=== PATIENT | female | born 1955 | race Caucasian/White ===

== ENCOUNTER 2019-03-31 07:19 | Inpatient (IN) | payer MEDICARE, OTHER ==
[2019-03-31] MEDS ORDERED: NORMAL SALINE 1000 ML 1,000 ML IV ONE ×3 (07:30→10:21)
--- NOTE | 2019-03-31 07:44 | EKG REPORT ---
SEVERITY:- ABNORMAL ECG - SINUS RHYTHM PROLONGED QT INTERVAL : Confirmed by: Ham Cordova MD 31-Mar-2019 07:43:01
[2019-03-31] MEDS ORDERED: ONDANSETRON HCL INJ/PF 4 MG/2 ML SDV IV ONE ×2 (07:47→10:01)
[2019-03-31 07:51] LABS: HEMATOCRIT 38.5 % (36.0-47.0); HEMOGLOBIN 12.9 g/dL (12.0-15.5); MEAN CORPUSCULAR HEMOGLOBIN 28.8 pg (27.0-33.4); MEAN CORPUSCULAR HGB CONC 33.4 g/dL (32.0-36.0); MEAN CORPUSCULAR VOLUME 86 fl (80-97); PLATELET COUNT 337 10^3/uL (150-450); RED BLOOD COUNT 4.48 10^6/uL (3.72-5.28); RED CELL DISTRIBUTION WIDTH 15.8 % (11.5-14.0)
[2019-03-31] MEDS ORDERED: METOCLOPRAMIDE HCL INJ/PF 10 MG/2 ML SDV IV ONE ×2 (07:56→10:21)
[2019-03-31 08:10] LABS: ALBUMIN 4.6 g/dL (3.5-5.0); ALKALINE PHOSPHATASE 110 U/L (38-126); ASPARTATE AMINO TRANSFERASE 374 U/L (14-36); BILIRUBIN,DIRECT 0.3 mg/dL (0.0-0.4); BILIRUBIN,TOTAL 0.7 mg/dL (0.2-1.3); BLOOD UREA NITROGEN 36 mg/dL (7-20); CALCIUM 10.8 mg/dL (8.4-10.2); CARBON DIOXIDE 11 mmol/L (22-30); CHLORIDE 95 mmol/L (98-107); POTASSIUM 4.4 mmol/L (3.6-5.0); TOTAL PROTEIN 7.7 g/dL (6.3-8.2)
[2019-03-31 08:12] LABS: ABSOLUTE MONOCYTES # (MANUAL) 0.9 10^3/uL (0.1-1.4); BASOPHILS % (MANUAL) 0 % (0-2); EOSINOPHILS % (MANUAL) 0 % (0-6); LYMPHOCYTES % (MANUAL) 9 % (13-45); MONOCYTES % (MANUAL) 4 % (3-13); SEGMENTED NEUTROPHILS % (MAN) 87 % (42-78); TOTAL CELLS COUNTED 100
[2019-03-31 08:14] LABS: ANISOCYTOSIS SLIGHT; OVALOCYTES SLIGHT; PLATELET CLUMPS PRESENT; PLATELET COMMENT ADEQUATE; POIKILOCYTOSIS SLIGHT
[2019-03-31 08:17] LABS: ANION GAP 30 (5-19)
[2019-03-31 08:18] LABS: GLUCOSE 572 mg/dL (75-110)
[2019-03-31] MEDS ORDERED: NORMAL SALINE 100 ML with INSULIN REGULAR, HUMAN 100 UNIT IV PRN ×4 (08:26→12:15)
--- NOTE | 2019-03-31 08:54 | RADIOLOGY REPORT (SQ) ---
EXAM DESCRIPTION: CT ABD/PELVIS NO ORAL OR IV COMPLETED DATE/TIME: 03/31/2019 8:21 am REASON FOR STUDY: abd pain COMPARISON: None. TECHNIQUE: CT scan of the abdomen and pelvis performed without intravenous or oral contrast. Images reviewed with lung, soft tissue, and bone windows. Reconstructed coronal and sagittal MPR images revi ewed. All images stored on PACS. All CT scanners at this facility use dose modulation, iterative reconstruction, and/or weight based d osing when appropriate to reduce radiation dose to as low as reasonably achievable (ALARA). [facility]: Dose Right [facility]: CareDose [facility]: Dose Right [facility]: Teradose 4D [facility]: Smart [facility] RADIATION DOSE: CT Rad equipment meets quality standard of care and radiation dose reduction techniq ues were employed. CTDIvol: 7.0 mGy. DLP: 361 mGy-cm. LIMITATIONS: None. FINDINGS: LOWER CHEST: No basilar consolidation or pleural effusion. Moderate hiatal hernia and ath erosclerotic calcification of the coronary arteries. No cardiomegaly or pericardial effusion. NON-CONTRASTED LIVER, SPLEEN, ADRENALS: Evaluation is limited due to the absence of intravenous contr ast. The diffuse low attenuation of hepatic parenchyma is consistent with hepatic steatosis. The sp yen is normal in size. There is no adrenal mass. PANCREAS: No gross acute abnormality. GALLBLADDER: The gallbladder is contracted. There is no pericholecystic fluid. RIGHT KIDNEY AND URETER: Evaluation is limited due to the absence of intravenous contrast. There is no hydronephrosis, nephrolithiasis, hydroureter or ureterolithiasis. LEFT KIDNEY AND URETER: Evaluation is limited due to the absence of intravenous contrast. There is n o hydronephrosis, nephrolithiasis, hydroureter or ureterolithiasis. AORTA AND RETROPERITONEUM: No aneurysm or dissection. Diffuse atherosclerotic calcification of the a bdominal vasculature is suggestive of diabetes mellitus. There is no retroperitoneal adenopathy, mas s or hemorrhage. BOWEL AND PERITONEAL CAVITY: No bowel obstruction, bowel wall thickening, pericolonic/perienteric inf lammation. No mesenteric adenopathy, free intraperitoneal fluid, or mesenteric/ omental stranding. APPENDIX: Normal. PELVIS, BLADDER, AND ABDOMINAL WALL:The uterine bladder is distended and normal in appearance. There is no abnormality of the uterus and adnexa that is apparent on CT. BONES: Age-indeterminate wedge compression deformity of the superior endplate of the T11 vertebral asya dy without retropulsion and with less than 25% loss of the vertebral body height ; and chronic fractu res of the right anterior pubic ramus and sacrum. OTHER: No other finding. IMPRESSION: 1. No acute intra-abdominal abnormality. 2. Moderate hiatal hernia. 3. Hepatic steatosis. 4. Age-indeterminate wedge compression deformity of the superior endplate of the T11 vertebral body w ithout retropulsion and with less than 25% loss of the vertebral body height - if the patient is symp tomatic correlation with bone scan or MRI could be obtained to evaluate the acuity of the fracture. 5. Extensive vascular calcifications suggestive of diabetes mellitus. COMMENT: Quality ID # [id number]: Final reports with documentation of one or more dose reduction techniques (e.g., Automated exposure control, adjustment of the mA and/or kV according to patient size, use of iterative reconstruction technique) TECHNICAL DOCUMENTATION: JOB ID: [id number] [employer]- All Rights Reserved Reading location - IP/workstation name: [email or web address]
[2019-03-31 08:55] LABS: APPEARANCE,URINE CLEAR; BILIRUBIN,URINE NEGATIVE (NEGATIVE); COLOR,URINE YELLOW; GLUCOSE, URINE >=500 mg/dL (NEGATIVE); KETONES,URINE 80 mg/dL (NEGATIVE); PROTEIN,URINE 30 mg/dL (NEGATIVE); URINE SPECIFIC GRAVITY 1.023; UROBILINOGEN,URINE NEGATIVE mg/dL (<2.0)
[2019-03-31] MEDS ORDERED: INSULIN REG, HUMAN 100 UNIT/ML 3 ML VIAL (PYX) ONE (08:58)
--- NOTE | 2019-03-31 10:10 | ER Document Report ---
ED General - General Chief Complaint: High Blood Sugar Stated Complaint: BLOOD SUGAR ISSUES Time Seen by Provider: 03/31/19 07:33 Mode of Arrival: Ambulatory Information source: Patient - HPI Notes: Patient complains of severe nausea vomiting and abdominal cramping. This is been going on for approximately 12 hours. She states she has been out of her normal insulin pods. She states her blood sugar has been elevated but is unsure exactly how high. She states she has had problems with diabetic ketoacidosis in the past. Patient has had no diarrhea. No recent fevers or infections. No changes of exercise habits. She has had a decreased p.o. intake. The abdominal pain is been severe and cramping. It is constant. Nothing makes it better or worse. It does radiate throughout her abdomen. - Related Data Allergies/Adverse Reactions: No Known Allergies Allergy (Unverified 03/31/19 08:00) Past Medical History - General Information source: Patient - Social History Smoking Status: Never Smoker Frequency of alcohol use: None Drug Abuse: None Family History: Reviewed & Not Pertinent Patient has suicidal ideation: No Patient has homicidal ideation: No Past Surgical History: Reports: Hx Cardiac Surgery - 4 stents Review of Systems - Review of Systems Constitutional: Malaise, Weakness Cardiovascular: denies: Chest pain, Palpitations Respiratory: denies: Cough, Short of breath Gastrointestinal: Abdominal pain, Nausea, Vomiting -: Yes All other systems reviewed and negative Physical Exam - Vital signs Vitals: Temp Resp Pulse Ox 97.7 F 19 97 03/31/19 07:27 03/31/19 07:27 03/31/19 07:27 Interpretation: Tachycardic - General General appearance: Appears well, Alert - HEENT Head: Normocephalic, Atraumatic Eyes: Normal Pupils: PERRL - Respiratory Respiratory status: No respiratory distress Chest status: Nontender Breath sounds: Normal Chest palpation: Normal - Cardiovascular Rhythm: Regular Heart sounds: Normal auscultation Murmur: No - Abdominal Inspection: Normal Distension: No distension Bowel sounds: Normal Tenderness: Tender - Mild diffuse Organomegaly: No organomegaly - Back Back: Normal, Nontender - Extremities General upper extremity: Normal inspection, Nontender, Normal color, Normal ROM, Normal temperature General lower extremity: Normal inspection, Nontender, Normal color, Normal ROM, Normal temperature, Normal weight bearing. No: David's sign - Neurological Neuro grossly intact: Yes Cognition: Normal Orientation: AAOx4 [place] Coma Scale Eye Opening: Spontaneous Zach Coma Scale Verbal: Oriented [place] Coma Scale Motor: Obeys Commands Zach Coma Scale Total: 15 Speech: Normal Motor strength normal: LUE, RUE, LLE, RLE Sensory: Normal - Psychological Associated symptoms: Normal affect, Normal mood - Skin Skin Temperature: Warm Skin Moisture: Dry Skin Color: Normal Course - Re-evaluation Re-evalutation: 03/31/19 10:07 Patient arrives with multiple episodes of vomiting. Patient's blood sugar came back over 500. She had a bicarbonate of 11. Patient is in obvious diabetic ketoacidosis. Symptomatic medications as well as IV fluids and antinausea medicines were given. Patient has had significant relief of symptoms at this time. She has been maintained on fluids and an insulin drip. Patient had a CT the abdomen that was unremarkable. She has been evaluated by the control panel operator here in the emergency department. She will be placed in the IMCU. - Vital Signs Vital signs: Temp Pulse Resp BP Pulse Ox 97.7 F 19 167/76 H 97 03/31/19 07:27 03/31/19 07:27 03/31/19 07:39 03/31/19 07:27 - Laboratory Result Diagrams: 03/31/19 07:30 03/31/19 07:30 Laboratory results interpreted by me: 03/31/19 03/31/19 03/31/19 07:29 07:30 07:30 WBC 22.0 H RDW 15.8 H Seg Neuts % (Manual) 87 H Lymphocytes % (Manual) 9 L Abs Neuts (Manual) 19.1 H Sodium 136.3 L Chloride 95 L Carbon Dioxide 11 L Anion Gap 30 H BUN 36 H Est GFR ( Amer) 57 L Est GFR (MDRD) Non-Af 47 L Glucose 572 H* POC Glucose 429 H* Calcium 10.8 H AST 374 H Lipase Urine Protein Urine Glucose (UA) Urine Ketones Urine Blood 03/31/19 03/31/19 03/31/19 07:30 08:42 09:02 WBC RDW Seg Neuts % (Manual) Lymphocytes % (Manual) Abs Neuts (Manual) Sodium Chloride Carbon Dioxide Anion Gap BUN Est GFR ( Amer) Est GFR (MDRD) Non-Af Glucose POC Glucose 482 H* Calcium AST Lipase 448.7 H Urine Protein 30 H Urine Glucose (UA) >=500 H Urine Ketones 80 H Urine Blood SMALL H - Diagnostic Test Radiology reviewed: Image reviewed, Reports reviewed - EKG Interpretation by Me EKG shows normal: Sinus rhythm Rate: Normal - 93 Rhythm: NSR [place]/QRS: No: Right axis deviation, Left axis deviation Critical Care Note - Critical Care Note Total time excluding time spent on procedures (mins): 50 Comments: Approximately 50 minutes of critical care time were spent on this patient. This included multiple reexaminations of the patient. This included managing the patient's fluid status and insulin drip. This included speaking with operations consultant. This included reviewing imaging and laboratory values. Discharge - Discharge Clinical Impression: Diabetic ketoacidosis Qualifiers: Diabetes mellitus type: type 1 Diabetes mellitus complication detail: without coma Qualified Code(s): E10.10 - Type 1 diabetes mellitus with ketoacidosis without coma Condition: Serious Disposition: ADMITTED INPATIENT Admitting Provider: Joshua (Hospitalist) Unit Admitted: [facility]
[2019-03-31 11:32] LABS: VENOUS BLOOD BASE EXCESS -15.8 mmol/L; VENOUS BLOOD HCO3 11.2 mmol/L (20-32); VENOUS BLOOD PCO2 30.7 mmHg (35-63)
[2019-03-31 11:35] LABS: VENOUS BLOOD PH 7.18 (7.30-7.42)
[2019-03-31] MEDS ORDERED: DEXTROSE 40% GEL 15 GM TUBE PO PRN ×2 (11:45)
[2019-03-31] MEDS ORDERED: DEXTROSE 50%-WATER 25 GM/50 ML DISP.SYRIN IV PRN ×2 (11:45)
[2019-03-31] MEDS ORDERED: GLUCAGON,HUMAN RECOMB 1 MG INJ IM PRN (11:45)
[2019-03-31] MEDS ORDERED: ACETAMINOPHEN 325 MG TABLET PO PRN (12:03)
[2019-03-31] MEDS ORDERED: PROMETHAZINE HCL INJ 25 MG/1 ML VIAL IV ONE (12:15)
--- NOTE | 2019-03-31 12:21 | PDOC H&P ---
History of Present Illness Admission Date/PCP: 03/31/19 11:03 Patient complains of: Nausea, vomiting and elevated glucose History of Present Illness: GORDON WALTON is a 63 year old female type I diabetic on an insulin pump. She states that over the last several days she has been feeling more poorly. She believes it started on Friday. She also was running out of her glucose testing equipment. Her symptoms included nausea and vomiting. She had no omer rrhea. She does not think she had a fever. She does state that she had a cough and at first thought it might of been the flu. Over the last several days she has had progressively decreasing appetite to the point where now she has recurrent nausea and vomiting. Her last episode of DKA was over 10 years ago. Her white blood cell count was elevated at 22,000. She had a decreased pH and decreased bicarb on her venous blood gas. Her glucose was elevated to 572 and she had an anion gap. In addition, she had an elevated lipase. She was started on insulin infusion as well as aggressive IV fluids. She was seen by the freelance court reporter who felt there was no need for an ICU admission. She was referred to the hospital service for admission. Past Medical History Cardiac Medical History: Reports: Coronary Artery Disease Pulmonary Medical History: Reports: None EENT Medical History: Reports: Other - Diabetic retinopathy Neurological Medical History: Reports: Other - Diabetic neuropathy Denies: Hemorrhagic CVA, Ischemic CVA Endocrine Medical History: Reports: Diabetes Mellitus Type 1 Renal/ Medical History: Denies: Chronic Kidney Disease Malignancy Medical History: Reports: None GI Medical History: Denies: Cirrhosis, Crohn's Disease, Gastroesophageal Reflux Disease, U lcerative Colitis Musculoskeltal Medical History: Reports: Other - Bilateral Charcot feet Denies: Arthritis, Fibromyalgia, Gout Psychiatric Medical History: Reports: Depression Denies: Alcohol Dependency, Dementia, Substance Abuse, Tobacco Dependency Traumatic Medical History: Reports: None Hematology: Denies: Anemia, Bleeding Tendencies Infectious Medical History: Reports: None Past Surgical History Past Surgical History: Reports: Coronary Stent, Orthopedic Surgery - Right foot reconstruction for Charcot foot Social History Information Source: Patient Lives with: Family Smoking Status: Never Smoker Electronic Cigarette use?: No Frequency of Alcohol Use: None - History of heavy alcohol use 20 years ago Hx Recreational Drug Use: No Hx Prescription Drug Abuse: No - Advance Directive Resuscitation Status: Do Not Resuscitate Surrogate healthcare decision maker:: The patient does have a living will and DNR back home in [place] Family History Family History: Reviewed & Not Pertinent Parental Family History Reviewed: Yes Children Family History Reviewed: Yes Sibling(s) Family History Reviewed.: Yes Medication/Allergy Home Medications: Aspirin [Aspirin 325 mg Tablet] 325 mg PO DAILY 03/31/19 Bupropion HCl [Wellbutrin Xl 150 mg 24hr Tablet] 150 mg PO Q12 03/31/19 Carvedilol [Coreg] 6.25 mg PO Q12 03/31/19 Gabapentin [Neurontin 300 mg Capsule] 300 mg PO Q12 03/31/19 Insulin Pump Cartridge [Omnipod] 1 each SQ .ASDIR 03/31/19 Levothyroxine Sodium [Synthroid 50 Mcg Tablet] 50 mcg PO Q6AM 03/31/19 Lisinopril [Prinivil 5 mg Tablet] 5 mg PO DAILY 03/31/19 Omeprazole Magnesium [Prilosec Otc] 40 mg PO Q6AM 03/31/19 Oxycodone HCl [Oxy-Ir 5 mg Tablet] 5 mg PO BIDP PRN 03/31/19 Rosuvastatin Calcium [Crestor] 40 mg PO DAILY 03/31/19 Sertraline HCl [Zoloft] 200 mg PO DAILY 03/31/19 Allergies/Adverse Reactions: No Known Allergies Allergy (Unverified 03/31/19 08:00) Review of Systems Constitutional: PRESENT: anorexia. ABSENT: chills, headache(s), weight gain, weight loss Eyes: PRESENT: visual disturbances - Diabetic retinopathy Ears: ABSENT: hearing changes Nose, Mouth, and Throat: ABSENT: mouth pain, sore throat Cardiovascular: ABSENT: chest pain, dyspnea on exertion, edema, orthropnea, palpitations Respiratory: ABSENT: dyspnea, hemoptysis, sputum Gastrointestinal: PRESENT: nausea, vomiting. ABSENT: constipation, diarrhea Genitourinary: ABSENT: difficulty urinating, dysuria, hematuria Musculoskeletal: PRESENT: deformity - Charcot feet. ABSENT: back pain, joint swelling Integumentary: ABSENT: erythema, pruritus, rash, wounds Neurological: ABSENT: abnormal speech, confusion, memory loss, syncope Psychiatric: ABSENT: anxiety, depression, hallucinations Endocrine: ABSENT: cold intolerance, heat intolerance, polydipsia, polyuria Hematologic/Lymphatic: ABSENT: easy bleeding, easy bruising, lymphadenopathy Allergic/Immunologic: ABSENT: seasonal rhinorrhea Physical Exam Vital Signs: Temp Pulse Resp BP Pulse Ox 97.7 F 23 H 141/55 H 95 03/31/19 07:27 03/31/19 12:01 03/31/19 12:01 03/31/19 12:01 Intake & Output 03/30/19 03/31/19 04/01/19 06:59 06:59 06:59 Intake Total 3018 Balance 3018 Weight 73.936 kg General appearance: PRESENT: cooperative, mild distress - Mild to moderate distress, well-developed, well-nourished Head exam: PRESENT: atraumatic, normocephalic Eye exam: PRESENT: conjunctiva pink, EOMI. ABSENT: scleral icterus Ear exam: PRESENT: normal external ear exam. ABSENT: bleeding, drainage Neck exam: PRESENT: full ROM. ABSENT: JVD, lymphadenopathy Respiratory exam: PRESENT: clear to auscultation gregor, tachypnea. ABSENT: accessory muscle use, rales, rhonchi, wheezes Cardiovascular exam: PRESENT: RRR, +S1, +S2 GI/Abdominal exam: PRESENT: normal bowel sounds, soft. ABSENT: distended, guarding, tenderness Rectal exam: PRESENT: deferred Gentrourinary exam: ABSENT: indwelling catheter Extremities exam: ABSENT: clubbing, pedal edema Musculoskeletal exam: PRESENT: deformity - Charcot feet bilaterally Neurological exam: PRESENT: alert, awake, oriented to person, oriented to place, oriented to time, oriented to situation Psychiatric exam: PRESENT: anxious, appropriate affect - Affect reflects her nausea, vomiting and acute illness Focused psych exam: ABSENT: delusional, restlessness Skin exam: PRESENT: dry, normal color, warm. ABSENT: petechiae, rash Results Laboratory Results: 03/31/19 07:30 03/31/19 03/31/19 03/31/19 07:30 07:30 07:30 WBC 22.0 H RBC 4.48 Hgb 12.9 Hct 38.5 MCV 86 MCH 28.8 MCHC 33.4 RDW 15.8 H Plt Count 337 Seg Neutrophils % Not Reportable VBG pH VBG pCO2 VBG HCO3 VBG Base Excess Sodium 136.3 L Potassium 4.4 Chloride 95 L Carbon Dioxide 11 L Anion Gap 30 H BUN 36 H Creatinine 1.15 Est GFR ( Amer) 57 L Glucose 572 H* Calcium 10.8 H Total Bilirubin 0.7 AST 374 H Alkaline Phosphatase 110 Total Protein 7.7 Albumin 4.6 Lipase 448.7 H Urine Color Urine Appearance Urine pH Ur Specific [place] Urine Protein Urine Glucose (UA) Urine Ketones Urine Blood Urine RBC (Auto) 03/31/19 03/31/19 08:42 11:12 WBC RBC Hgb Hct MCV MCH MCHC RDW Plt Count Seg Neutrophils % VBG pH 7.18 L* VBG pCO2 30.7 L VBG HCO3 11.2 L VBG Base Excess -15.8 Sodium Potassium Chloride Carbon Dioxide Anion Gap BUN Creatinine Est GFR ( Amer) Glucose Calcium Total Bilirubin AST Alkaline Phosphatase Total Protein Albumin Lipase Urine Color YELLOW Urine Appearance CLEAR Urine pH 5.0 Ur Specific [place] 1.023 Urine Protein 30 H Urine Glucose (UA) >=500 H Urine Ketones 80 H Urine Blood SMALL H Urine RBC (Auto) 0 03/31/19 07:30 Troponin I 0.071 Impressions: Abdomen/Pelvis CT 03/31/19 07:56 IMPRESSION: 1. No acute intra-abdominal abnormality. 2. Moderate hiatal hernia. 3. Hepatic steatosis. 4. Age-indeterminate wedge compression deformity of the superior endplate of the T11 vertebral body without retropulsion and with less than 25% loss of the vertebral body height - if the patient is symptomatic correlation with bone scan or MRI could be obtained to evaluate the acuity of the fracture. 5. Extensive vascular calcifications suggestive of diabetes mellitus. Assessment and Plan - Diagnosis (1) Diabetic ketoacidosis Qualifiers: Diabetes mellitus type: type 1 Diabetes mellitus complication detail: without coma Qualified Code(s): E10.10 - Type 1 diabetes mellitus with ketoacidosis without coma Is this a current diagnosis for this admission?: Yes Plan: 03/31/2019-the patient is on insulin pump. Unfortunately she ran out of supplies for glucose testing. She was unable to adjust her pump based on glucose readings. She began to feel sick on Friday. She is visiting from [place] and because she thought it might of been the flu, did not seek me dical attention. As she worsened and she began to have nausea and vomiting. She presented to the hospital and it was found that her glucose was greater than 500, pH was down, she had an elevated anion gap and abnormal transaminases. She was promptly started on an insulin infusion and given copious amounts of intravenous fluid with aggressive Accu-Cheks and laboratory testing. We will continue to adjust her insulin infusion. When her glucose hits approximately 200 we will change the fluid to dextrose containing normal saline. Based on her basal rate I will use long-acting insulin with short acting sliding scale coverage. I am going to keep her n.p.o. because of her pancreatitis. Hopefully that will resolve and she could begin consuming an oral diet tomorrow. (2) Diabetic neuropathy Qualifiers: Diabetes mellitus type: type 1 Diabetes mellitus complication detail: diabetic polyneuropathy Qualified Code(s): E10.42 - Type 1 diabetes mellitus with diabetic polyneuropathy Is this a current diagnosis for this admission?: Yes Plan: 03/31/2019-we will continue her gabapentin as currently ordered. With her severe neuropathy she has developed Charcot feet. I did ask that her bring her orthotics to the hospital so that we can avoid bedrest. (3) Coronary artery disease Qualifiers: Coronary Disease-Associated Artery/Lesion type: koi artery [place] vs. transplanted heart: koi heart Associated angina: without angina Qualified Code(s): I25.10 - Atherosclerotic heart disease of koi coronary artery without angina pectoris Is this a current diagnosis for this admission?: Yes Plan: 03/31/2019-we will continue her baseline cardiac medications. These include aspirin, carvedilol, lisinopril and we will substitute atorvastatin for her Kaminski statin. She has no complaints of acute coronary syndrome at this time. (4) Hypertension Qualifiers: Hypertension type: essential hypertension Qualified Code(s): I10 - Essential (primary) hypertension Is this a current diagnosis for this admission?: Yes Plan: 03/31/2019-she is somewhat hypertensive but I believe this is more due to her distress with the nausea and vomiting than anything else. We will continue her current medication regimen. If nausea and vomiting prohibit the use of her oral medications I will have intravenous medication available if needed. (5) Hyperlipidemia Qualifiers: Hyperlipidemia type: unspecified Qualified Code(s): E78.5 - Hyperlipidemia, unspecified Is this a current diagnosis for this admission?: Yes Plan: 03/31/2019-we will substitute atorvastatin for her lovastatin and resume her lovastatin at the time of discharge. (6) Pancreatitis Qualifiers: Chronicity: acute Pancreatitis type: unspecified pancreatitis type Acute pancreatitis complication: no infection or necrosis Qualified Code(s): K85.90 - Acute pancreatitis without necrosis or infection, unspecified Is this a current diagnosis for this admission?: Yes Plan: 03/31/2019-the patient does not consume alcohol and so it is difficult to identify the etiology of the pancreatitis. She will remain n.p.o. tonight and if her nausea and vomiting improves we will start an oral diet tomorrow. (7) Elevated transaminase level Is this a current diagnosis for this admission?: Yes Plan: 03/31/2019-it is unclear of the etiology for her elevated transaminase levels. Because of the patient's condition at admission I did need to abbreviate some of the history. I will further discuss this with the patient in the morning. It would not seem obstructive without an elevated bilirubin. I will investigate further before ordering any imaging studies. (8) Depression Qualifiers: Depression Type: unspecified Qualified Code(s): F32.9 - Major depressive disorder, single episode, unspecified Is this a current diagnosis for this admission?: Yes Plan: 03/31/2019-the Zoloft could also be for anxiety and more likely for depression with anxiety. We will continue her Zoloft 200 mg daily. - Plan Summary Summary: 03/31/2019-we will aggressively treat the diabetic ketoacidosis. We will continue medications for all of her comorbidities. The plan will be to discharge when stable so that she may return to the [facility]. I did reach out to her clarifier Dr. Ahumada. The office graciously faxed notes for Mrs. Burns that have been placed in her chart. - Time Time Spent with patient: 35 or more minutes Medications reviewed and adjusted accordingly: Yes Anticipated discharge: Home - Inpatient Certification Based on my medical assessment, after consideration of the patient's comorbidities, presenting symptoms, or acuity I expect that the services needed warrant INPATIENT care.: Yes I certify that my determination is in accordance with my understanding of Medicare's requirements for reasonable and necessary INPATIENT services [42 CFR 412.3e].: Yes Medical Necessity: Significant Comorbidiites Make Outpatient Treatment Too Risky , Need Close Monitoring Due to Risk of Patient Decompensation, Need For IV Fluids, Risk of Complication if Not Cared For in Hospital Post Hospital Care: D/C Aircraft Maintenance Supervisor Documentation
[2019-03-31 12:41] LABS: BLOOD UREA NITROGEN 31 mg/dL (7-20); CALCIUM 9.5 mg/dL (8.4-10.2); GLUCOSE 311 mg/dL (75-110); POTASSIUM 3.9 mmol/L (3.6-5.0)
--- NOTE | 2019-03-31 12:41 | PDOC CRITICAL CARE PROG REPORT ---
General Date:: 03/31/19 Hospital Day:: 1 Resuscitation Status: Full Code Events in the past 12 to 24 Hours:: Found herself in DKA Review of systems relevant to events:: Endocrine Reason for ICU Addmission:: Not in need of ICU placement - Medications: Medications reviewed and adjusted accordingly: Yes Vasopressors:: None Sedation:: None Physical Exam Vital Signs: Temp Pulse Resp BP Pulse Ox 97.7 F 23 H 141/55 H 95 03/31/19 07:27 03/31/19 12:01 03/31/19 12:01 03/31/19 12:01 Intake & Output 03/30/19 03/31/19 04/01/19 06:59 06:59 06:59 Intake Total 3018 Balance 3018 Weight 73.936 kg Weight/Height Weight 73.936 kg Height 5 ft General appearance: PRESENT: no acute distress, well-developed, well-nourished Head exam: PRESENT: atraumatic, normocephalic Eye exam: PRESENT: conjunctiva pink, EOMI, PERRLA. ABSENT: scleral icterus Ear exam: PRESENT: normal external ear exam Mouth exam: PRESENT: dry mucosa Respiratory exam: PRESENT: clear to auscultation gregor. ABSENT: rales, rhonchi, wheezes Cardiovascular exam: PRESENT: RRR. ABSENT: diastolic murmur, rubs, systolic murmur Pulses: PRESENT: normal dorsalis pedis pul GI/Abdominal exam: PRESENT: normal bowel sounds, soft. ABSENT: distended, guarding, mass, organolmegaly, rebound, tenderness Rectal exam: PRESENT: deferred Extremities exam: PRESENT: full ROM. ABSENT: calf tenderness, clubbing, pedal edema Musculoskeletal exam: PRESENT: ambulatory, normal inspection Neurological exam: PRESENT: alert, awake, oriented to person, oriented to place, oriented to time, oriented to situation, CN II-XII grossly intact. ABSENT: motor sensory deficit Skin exam: PRESENT: dry, intact, warm. ABSENT: cyanosis, rash Laboratory/Radiographs Laboratory Results: 03/31/19 07:30 03/31/19 03/31/19 03/31/19 07:30 07:30 07:30 WBC 22.0 H RBC 4.48 Hgb 12.9 Hct 38.5 MCV 86 MCH 28.8 MCHC 33.4 RDW 15.8 H Plt Count 337 Seg Neutrophils % Not Reportable VBG pH VBG pCO2 VBG HCO3 VBG Base Excess Sodium 136.3 L Potassium 4.4 Chloride 95 L Carbon Dioxide 11 L Anion Gap 30 H BUN 36 H Creatinine 1.15 Est GFR ( Amer) 57 L Glucose 572 H* Calcium 10.8 H Total Bilirubin 0.7 AST 374 H Alkaline Phosphatase 110 Total Protein 7.7 Albumin 4.6 Lipase 448.7 H Urine Color Urine Appearance Urine pH Ur Specific [place] Urine Protein Urine Glucose (UA) Urine Ketones Urine Blood Urine RBC (Auto) 03/31/19 03/31/19 08:42 11:12 WBC RBC Hgb Hct MCV MCH MCHC RDW Plt Count Seg Neutrophils % VBG pH 7.18 L* VBG pCO2 30.7 L VBG HCO3 11.2 L VBG Base Excess -15.8 Sodium Potassium Chloride Carbon Dioxide Anion Gap BUN Creatinine Est GFR ( Amer) Glucose Calcium Total Bilirubin AST Alkaline Phosphatase Total Protein Albumin Lipase Urine Color YELLOW Urine Appearance CLEAR Urine pH 5.0 Ur Specific [place] 1.023 Urine Protein 30 H Urine Glucose (UA) >=500 H Urine Ketones 80 H Urine Blood SMALL H Urine RBC (Auto) 0 03/31/19 07:30 Troponin I 0.071 Impressions: Abdomen/Pelvis CT 03/31/19 07:56 IMPRESSION: 1. No acute intra-abdominal abnormality. 2. Moderate hiatal hernia. 3. Hepatic steatosis. 4. Age-indeterminate wedge compression deformity of the superior endplate of the T11 vertebral body without retropulsion and with less than 25% loss of the vertebral body height - if the patient is symptomatic correlation with bone scan or MRI could be obtained to evaluate the acuity of the fracture. 5. Extensive vascular calcifications suggestive of diabetes mellitus. All labs, radiographs, diagnostic studies and EKGs were personally reviewed: Yes In addition, reports of radiographic and diagnostic studies were read: Yes Assessment and Plan - Diagnosis (1) Diabetic ketoacidosis Qualifiers: Diabetes mellitus type: type 1 Diabetes mellitus complication detail: without coma Qualified Code(s): E10.10 - Type 1 diabetes mellitus with ketoacidosis without coma Is this a current diagnosis for this admission?: Yes Plan: This patient is visiting from the [facility] and does not have equipment to monitor blood suger. Therefore although she has insulin is unable to properly dose. She has had DM 46 years and has had mulitiple episodes of DKA. This episode is not severe. Her bicarb is 11 but respirations are stable, she feels much better after 1 liter of fluid and should be safe for further treatment in the [facility]. Perhaps home tomorrow or Friday. Plan Summary: IVF and insulin until gap is closed and bicarp > 15 and BG < 200. Critical Time Critical Time (minutes): 35 Level of Care: IMCU Anticipated discharge: Home Within: within 48 hours -: 1. The care of a critical patient is a dynamic process. This note is a risk control representative synopsis but static in nature. The timeframe for treatments given in order is not necessary the actual time these treatments may have been done. 2. This patient requires critical care secondary to ongoing requirements for therapy not offered or safe outside the critical care environment. Transfer to a lower level of care with altered life or limb morbidity and mortality. 3. Multidisciplinary rounds completed. 4. ABCDE bundle addressed.
[2019-03-31 12:47] LABS: CARBON DIOXIDE 13 mmol/L (22-30); CHLORIDE 107 mmol/L (98-107)
[2019-03-31 12:51] LABS: ANION GAP 21 (5-19)
[2019-03-31] MEDS: HEPARIN SOD (PORCINE) 5,000 UNIT/ML 1 ML VIAL SUBCUT SCH ×2 (13:20→21:33)
[2019-03-31] MEDS: ONDANSETRON HCL INJ/PF 4 MG/2 ML SDV IV PRN ×2 (13:21→19:56)
[2019-03-31] MEDS: BUPROPION HCL 100 MG TABLET PO SCH ×2 (13:21→21:32)
[2019-03-31] MEDS: OXYCODONE HCL IR 5 MG TABLET PO PRN (13:21)
[2019-03-31] MEDS ORDERED: DEXTROSE 5%-NORMAL SALINE 1,000 ML IV PRN (14:31)
[2019-03-31] MEDS: METOCLOPRAMIDE HCL INJ/PF 10 MG/2 ML SDV IV PRN ×2 (14:46→21:36)
[2019-03-31 17:26] LABS: ANION GAP 17 (5-19); BLOOD UREA NITROGEN 31 mg/dL (7-20); CALCIUM 10.2 mg/dL (8.4-10.2); CARBON DIOXIDE 18 mmol/L (22-30); CHLORIDE 107 mmol/L (98-107); GLUCOSE 164 mg/dL (75-110)
[2019-03-31 20:59] LABS: ANION GAP 17 (5-19); BLOOD UREA NITROGEN 27 mg/dL (7-20); CALCIUM 9.6 mg/dL (8.4-10.2); CARBON DIOXIDE 16 mmol/L (22-30); CHLORIDE 107 mmol/L (98-107); GLUCOSE 302 mg/dL (75-110)
[2019-03-31] MEDS: INSULIN GLARGINE,HUM.REC.ANLOG 1,000 UNIT/10 ML VIAL SUBCUT SCH (21:32)
[2019-03-31] MEDS: GABAPENTIN 300 MG CAPSULE PO SCH (21:32)
[2019-03-31] MEDS: ATORVASTATIN CALCIUM 40 MG TABLET PO SCH (21:32)
[2019-03-31] MEDS: CARVEDILOL 6.25 MG TABLET PO SCH (21:32)
[2019-03-31] MEDS ORDERED: FAMOTIDINE INJ/PF 20 MG/2 ML SDV IV SCH (22:00)
[2019-03-31] MEDS ORDERED: (PENDING PHARMACY ID) (Bupropion Hcl [Wellbutrin Xl 150 Mg 24hr Tablet] 150 MG) PO SCH (22:00)
[2019-03-31] MEDS: INSULIN LISPRO 100 UNIT/ML 3 ML VIAL SUBCUT SCH (23:35)
[2019-04-01] MEDS: NORMAL SALINE 1000 ML 1,000 ML IV PRN ×4 (00:36→21:16)
[2019-04-01 00:56] LABS: BLOOD UREA NITROGEN 24 mg/dL (7-20); CALCIUM 9.5 mg/dL (8.4-10.2); GLUCOSE 375 mg/dL (75-110); POTASSIUM 3.9 mmol/L (3.6-5.0)
[2019-04-01 01:02] LABS: CARBON DIOXIDE 14 mmol/L (22-30); CHLORIDE 107 mmol/L (98-107)
[2019-04-01 01:03] LABS: ANION GAP 20 (5-19)
[2019-04-01] MEDS: ONDANSETRON HCL INJ/PF 4 MG/2 ML SDV IV PRN ×4 (03:30→21:16)
[2019-04-01 05:29] LABS: ABSOLUTE MONOCYTES (AUTO) 1.5 10^3/uL (0.1-1.4); ABSOLUTE NEUT (AUTO) 15.7 10^3/uL (1.7-8.2); BASOPHILS % (AUTO) 0.2 % (0-2); HEMATOCRIT 41.3 % (36.0-47.0); HEMOGLOBIN 13.6 g/dL (12.0-15.5); LYMPHOCYTES % (AUTO) 5.6 % (13-45); MEAN CORPUSCULAR HEMOGLOBIN 27.8 pg (27.0-33.4); MEAN CORPUSCULAR VOLUME 84 fl (80-97); MONOCYTES % (AUTO) 8.1 % (3-13); PLATELET COUNT 273 10^3/uL (150-450); SEGMENTED NEUTROPHILS % (AUTO) 86.1 % (42-78); TOTAL CELLS COUNTED % (AUTO) 100 %; WHITE BLOOD COUNT 18.3 10^3/uL (4.0-10.5)
[2019-04-01] MEDS: LEVOTHYROXINE SODIUM 0.05 MG TABLET PO SCH (05:34)
[2019-04-01] MEDS: INSULIN LISPRO 100 UNIT/ML 3 ML VIAL SUBCUT SCH ×4 (05:34→23:45)
[2019-04-01] MEDS: PANTOPRAZOLE SODIUM 40 MG TABLET.DR PO SCH (05:34)
[2019-04-01] MEDS: HEPARIN SOD (PORCINE) 5,000 UNIT/ML 1 ML VIAL SUBCUT SCH ×3 (05:34→21:18)
[2019-04-01] MEDS: BUPROPION HCL 100 MG TABLET PO SCH ×3 (05:34→21:19)
[2019-04-01] MEDS: METOCLOPRAMIDE HCL INJ/PF 10 MG/2 ML SDV IV PRN (05:38)
[2019-04-01 05:40] LABS: ANION GAP 15 (5-19); BLOOD UREA NITROGEN 23 mg/dL (7-20); CALCIUM 9.6 mg/dL (8.4-10.2); CARBON DIOXIDE 21 mmol/L (22-30); CHLORIDE 108 mmol/L (98-107); GLUCOSE 254 mg/dL (75-110); POTASSIUM 3.7 mmol/L (3.6-5.0)
[2019-04-01] MEDS ORDERED: (PENDING PHARMACY ID) (Omeprazole Magnesium [Prilosec Otc] 40 MG) PO SCH (06:00)
[2019-04-01] MEDS: HYDRALAZINE HCL INJ/PF 20 MG/1 ML SDV IV PRN (09:07)
[2019-04-01] MEDS: INSULIN GLARGINE,HUM.REC.ANLOG 1,000 UNIT/10 ML VIAL SUBCUT SCH ×2 (09:12→23:12)
[2019-04-01] MEDS ORDERED: (PENDING PHARMACY ID) (Sertraline Hcl [Zoloft] 200 MG) PO SCH (10:00)
--- NOTE | 2019-04-01 10:47 | PDOC PROGRESS REPORT ---
Subjective Progress Note for:: 04/01/19 Subjective:: The patient is still having significant nausea. It may be related to ice chips as opposed to room temperature water. She is anxious about discharge and travel home as the refills for her Omni pod glucose monitoring system are extremely expensive. Reason For Visit: DIABETIC KETOACIDOSIS Physical Exam Vital Signs: Temp Pulse Resp BP Pulse Ox 99.0 F 89 18 178/74 H 94 04/01/19 08:41 04/01/19 08:41 04/01/19 08:41 04/01/19 08:41 04/01/19 08:41 Intake & Output 03/31/19 04/01/19 04/02/19 06:59 06:59 06:59 Intake Total 4086 1000 Balance 4086 1000 Weight 69.6 kg General appearance: PRESENT: cooperative, mild distress, well-developed, well- nourished Head exam: PRESENT: atraumatic, normocephalic Mouth exam: PRESENT: dry mucosa, tongue midline Respiratory exam: PRESENT: rales - Faint, symmetrical, unlabored. ABSENT: rhonchi, tachypnea, wheezes Cardiovascular exam: PRESENT: RRR, +S1, +S2 GI/Abdominal exam: PRESENT: normal bowel sounds, soft, tenderness - Slight tenderness in the epigastrium. Improved from yesterday.. ABSENT: distended Rectal exam: PRESENT: deferred Musculoskeletal exam: PRESENT: deformity - Charcot feet Neurological exam: PRESENT: alert, awake, oriented to person, oriented to place, oriented to time, oriented to situation, CN II-XII grossly intact Psychiatric exam: PRESENT: anxious. ABSENT: agitated Focused psych exam: ABSENT: delusional, restlessness Results Laboratory Results: 04/01/19 04:13 04/01/19 04:13 03/31/19 03/31/19 03/31/19 11:12 12:05 16:46 WBC RBC Hgb Hct MCV MCH MCHC RDW Plt Count Seg Neutrophils % VBG pH 7.18 L* VBG pCO2 30.7 L VBG HCO3 11.2 L VBG Base Excess -15.8 Sodium 141.2 142.1 Potassium 3.9 4.0 Chloride 107 107 Carbon Dioxide 13 L 18 L Anion Gap 21 H 17 BUN 31 H 31 H Creatinine 0.94 0.87 Est GFR ( Amer) > 60 > 60 Glucose 311 H 164 H Calcium 9.5 10.2 03/31/19 04/01/19 04/01/19 20:15 00:20 04:13 WBC 18.3 H RBC 4.90 Hgb 13.6 Hct 41.3 MCV 84 MCH 27.8 MCHC 33.0 RDW 16.0 H Plt Count 273 Seg Neutrophils % 86.1 H VBG pH VBG pCO2 VBG HCO3 VBG Base Excess Sodium 139.9 140.9 Potassium 4.0 3.9 Chloride 107 107 Carbon Dioxide 16 L 14 L Anion Gap 17 20 H BUN 27 H 24 H Creatinine 0.85 0.93 Est GFR ( Amer) > 60 > 60 Glucose 302 H 375 H Calcium 9.6 9.5 04/01/19 04:13 WBC RBC Hgb Hct MCV MCH MCHC RDW Plt Count Seg Neutrophils % VBG pH VBG pCO2 VBG HCO3 VBG Base Excess Sodium 143.6 Potassium 3.7 Chloride 108 H Carbon Dioxide 21 L Anion Gap 15 BUN 23 H Creatinine 0.88 Est GFR ( Amer) > 60 Glucose 254 H Calcium 9.6 03/31/19 07:30 Troponin I 0.071 Impressions: Abdomen/Pelvis CT 03/31/19 07:56 IMPRESSION: 1. No acute intra-abdominal abnormality. 2. Moderate hiatal hernia. 3. Hepatic steatosis. 4. Age-indeterminate wedge compression deformity of the superior endplate of the T11 vertebral body without retropulsion and with less than 25% loss of the vertebral body height - if the patient is symptomatic correlation with bone scan or MRI could be obtained to evaluate the acuity of the fracture. 5. Extensive vascular calcifications suggestive of diabetes mellitus. Assessment and Plan - Diagnosis (1) Diabetic ketoacidosis Qualifiers: Diabetes mellitus type: type 1 Diabetes mellitus complication detail: without coma Qualified Code(s): E10.10 - Type 1 diabetes mellitus with ketoacidosis without coma Is this a current diagnosis for this admission?: Yes Plan: 03/31/2019-the patient is on insulin pump. Unfortunately she ran out of supplies for glucose testing. She was unable to adjust her pump based on glucose readings. She began to feel sick on Friday. She is visiting from [place] and because she thought it might of been the flu, did not seek medical attention. As she worsened and she began to have nausea and vomiting. She presented to the hospital and it was found that her glucose was greater than 500, pH was down, she had an elevated anion gap and abnormal transaminases. She was promptly started on an insulin infusion and given copious amounts of intravenous fluid with aggressive Accu-Cheks and laboratory testing. We will continue to adjust her insulin infusion. When her glucose hits approximately 2 00 we will change the fluid to dextrose containing normal saline. Based on her basal rate I will use long-acting insulin with short acting sliding scale coverage. I am going to keep her n.p.o. because of her pancreatitis. Hopefully that will resolve and she could begin consuming an oral diet tomorrow. 04/01/2019-anion gap is resolved. Glucoses are improving. There were high earlier and so the D5 normal saline was discontinued and now she is on normal saline. We will continue Accu-Cheks as well as Lantus and sliding scale. She may need to use a glucometer as well as Lantus and regular insulin for her trip home as her basal rate may need to be adjusted. (2) Diabetic neuropathy Qualifiers: Diabetes mellitus type: type 1 Diabetes mellitus complication detail: diabetic polyneuropathy Qualified Code(s): E10.42 - Type 1 diabetes mellitus with diabetic polyneuropathy Is this a current diagnosis for this admission?: Yes Plan: 03/31/2019-we will continue her gabapentin as currently ordered. With her severe neuropathy she has developed Charcot feet. I did ask that her bring her orthotics to the hospital so that we can avoid bedrest. 04/01/2019-continue gabapentin. Interestingly, we briefly discussed diabetic gastroparesis. She has not been diagnosed with this. Because her pancreatitis was only mild I am going to initiate a trial of scheduled Reglan. (3) Coronary artery disease Qualifiers: Coronary Disease-Associated Artery/Lesion type: [place] artery [place] vs. transplanted heart: [place] heart Associated angina: without angina Qualified Code(s): I25.10 - Atherosclerotic heart disease of [place] coronary artery without angina pectoris Is this a current diagnosis for this admission?: Yes Plan: 03/31/2019-we will continue her baseline cardiac medications. These include aspirin, carvedilol, lisinopril and we will substitute atorvastatin for her Ruouvastatin. She has no complaints of acute coronary syndrome at this time. 04/01/2019-no symptoms of acute coronary syndrome. Continue same medications. (4) Hypertension Qualifiers: Hypertension type: essential hypertension Qualified Code(s): I10 - Essential (primary) hypertension Is this a current diagnosis for this admission?: Yes Plan: 03/31/2019-she is somewhat hypertensive but I believe this is more due to her distress with the nausea and vomiting than anything else. We will continue her current medication regimen. If nausea and vomiting prohibit the use of her oral medications I will have intravenous medication available if needed. 04/01/2019-still with systolic hypertension. This could be due to discomfort. I have decreased the IV fluid. She is net 5 L positive and so I may give a single dose of furosemide. (5) Hyperlipidemia Qualifiers: Hyperlipidemia type: unspecified Qualified Code(s): E78.5 - Hyperlipidemia, unspecified Is this a current diagnosis for this admission?: Yes Plan: 03/31/2019-we will substitute atorvastatin for her lovastatin and resume her lovastatin at the time of discharge. 04/01/2019-continue statin therapy (6) Pancreatitis Qualifiers: Chronicity: acute Pancreatitis type: unspecified pancreatitis type Acute pancreatitis complication: no infection or necrosis Qualified Code(s): K85.90 - Acute pancreatitis without necrosis or infection, unspecified Is this a current diagnosis for this admission?: Yes Plan: 03/31/2019-the patient does not consume alcohol and so it is difficult to ident ben the etiology of the pancreatitis. She will remain n.p.o. tonight and if her nausea and vomiting improves we will start an oral diet tomorrow. 04/01/2019-we will recheck lipase. Hard to know if pancreatitis, possibly diabetic gastroparesis or her DKA are contributing to her nausea. We will try room temperature water and if she tolerates this consider trial of clear liquids. (7) Elevated transaminase level Is this a current diagnosis for this admission?: Yes Plan: 03/31/2019-it is unclear of the etiology for her elevated transaminase levels. Because of the patient's condition at admission I did need to abbreviate some of the history. I will further discuss this with the patient in the morning. It would not seem obstructive without an elevated bilirubin. I will investigate further before ordering any imaging studies. 04/01/2019-we will recheck levels tomorrow. Once again unsure of the etiology. Continue to monitor. (8) Depression Qualifiers: Depression Type: unspecified Qualified Code(s): F32.9 - Major depressive disorder, single episode, unspecified Is this a current diagnosis for this admission?: Yes Plan: 03/31/2019-the Zoloft could also be for anxiety and more likely for depression with anxiety. We will continue her Zoloft 200 mg daily. 04/01/2019-continue current medications. She is also on bupropion. Will need to monitor for serotonin syndrome. - Plan Summary Summary: 03/31/2019-we will aggressively treat the diabetic ketoacidosis. We will continue medications for all of her comorbidities. The plan will be to discha ahmet when stable so that she may return to the [facility]. I did reach out to her needle straightener Dr. Ahumada. The office graciously faxed notes for Mrs. Burns that have been placed in her chart. 04/01/2019-we will encourage out of bed. Hopefully with scheduled Reglan the patient will have better control of nausea and vomiting. - Time Time Spent with patient: 15-24 minutes Medications reviewed and adjusted accordingly: Yes Anticipated discharge: Home
[2019-04-01] MEDS: OXYCODONE HCL IR 5 MG TABLET PO PRN (10:50)
[2019-04-01] MEDS: ASPIRIN 325 MG TABLET PO SCH ×2 (10:50→11:38)
[2019-04-01] MEDS: CARVEDILOL 6.25 MG TABLET PO SCH ×3 (10:50→21:19)
[2019-04-01] MEDS ORDERED: FUROSEMIDE INJ/PF 20 MG/2 ML SDV IV ONE (11:00)
[2019-04-01] MEDS: LISINOPRIL 5 MG TABLET PO SCH (11:28)
[2019-04-01] MEDS: SERTRALINE HCL 50 MG TABLET PO SCH (11:28)
[2019-04-01] MEDS: GABAPENTIN 300 MG CAPSULE PO SCH ×2 (11:28→21:21)
[2019-04-01] MEDS: METOCLOPRAMIDE HCL INJ/PF 10 MG/2 ML SDV IV SCH ×3 (11:28→23:02)
[2019-04-01] MEDS: ATORVASTATIN CALCIUM 40 MG TABLET PO SCH (21:19)
[2019-04-01] MEDS: TEMAZEPAM 7.5 MG CAPSULE PO PRN (23:02)
[2019-04-02] MEDS: METOCLOPRAMIDE HCL INJ/PF 10 MG/2 ML SDV IV SCH ×4 (05:03→23:37)
[2019-04-02] MEDS: ONDANSETRON HCL INJ/PF 4 MG/2 ML SDV IV PRN ×2 (05:03→11:44)
[2019-04-02] MEDS: LEVOTHYROXINE SODIUM 0.05 MG TABLET PO SCH (05:03)
[2019-04-02] MEDS: NORMAL SALINE 1000 ML 1,000 ML IV PRN ×2 (05:04→22:29)
[2019-04-02] MEDS: PANTOPRAZOLE SODIUM 40 MG TABLET.DR PO SCH ×2 (05:04→22:32)
[2019-04-02] MEDS: BUPROPION HCL 100 MG TABLET PO SCH ×3 (05:04→21:51)
[2019-04-02] MEDS: HEPARIN SOD (PORCINE) 5,000 UNIT/ML 1 ML VIAL SUBCUT SCH ×3 (05:05→21:50)
[2019-04-02 06:43] LABS: VENOUS BLOOD BASE EXCESS -3.7 mmol/L; VENOUS BLOOD HCO3 20.6 mmol/L (20-32); VENOUS BLOOD PCO2 34.9 mmHg (35-63); VENOUS BLOOD PH 7.39 (7.30-7.42)
[2019-04-02 06:59] LABS: ALBUMIN 3.4 g/dL (3.5-5.0); ALKALINE PHOSPHATASE 78 U/L (38-126); ANION GAP 17 (5-19); ASPARTATE AMINO TRANSFERASE 102 U/L (14-36); BILIRUBIN,DIRECT 0.3 mg/dL (0.0-0.4); BILIRUBIN,TOTAL 0.6 mg/dL (0.2-1.3); BLOOD UREA NITROGEN 16 mg/dL (7-20); CALCIUM 8.7 mg/dL (8.4-10.2); CARBON DIOXIDE 19 mmol/L (22-30); CHLORIDE 106 mmol/L (98-107); GLUCOSE 258 mg/dL (75-110); TOTAL PROTEIN 6.3 g/dL (6.3-8.2)
[2019-04-02] MEDS: INSULIN LISPRO 100 UNIT/ML 3 ML VIAL SUBCUT SCH ×4 (07:30→23:34)
[2019-04-02] MEDS: GABAPENTIN 300 MG CAPSULE PO SCH ×2 (09:36→21:51)
[2019-04-02] MEDS: LISINOPRIL 5 MG TABLET PO SCH (09:36)
[2019-04-02] MEDS: ASPIRIN 325 MG TABLET PO SCH (09:36)
[2019-04-02] MEDS: INSULIN GLARGINE,HUM.REC.ANLOG 1,000 UNIT/10 ML VIAL SUBCUT SCH ×2 (09:37→23:34)
[2019-04-02] MEDS: CARVEDILOL 6.25 MG TABLET PO SCH ×2 (09:37→21:51)
[2019-04-02] MEDS: SERTRALINE HCL 50 MG TABLET PO SCH (09:37)
[2019-04-02] MEDS ORDERED: POTASSIUM CHLORIDE 10 MEQ TABLET.ER PO ONE (10:00)
[2019-04-02] MEDS ORDERED: POTASSIUM CHLORIDE 20 MEQ/50 ML RTU IV ONE (10:00)
[2019-04-02] MEDS ORDERED: POTASSIUM CHLORIDE 20 MEQ PACKET PO ONE (10:45)
--- NOTE | 2019-04-02 13:45 | PDOC PROGRESS REPORT ---
Subjective Progress Note for:: 04/02/19 Subjective:: The patient's is sitting at the bedside. The patient is flushed. She certainly appears to be not feeling well. She reports that she just had an episode of emesis prior to this encounter. She states that this morning when she woke up (temazepam was given for sleep) she the best she has been since admission. She reports that she almost felt back to her baseline. She then developed the ongoing nausea and vomiting. Reason For Visit: DIABETIC KETOACIDOSIS Physical Exam Vital Signs: Temp Pulse Resp BP Pulse Ox 98.6 F 82 16 154/77 H 94 04/02/19 11:23 04/02/19 11:23 04/02/19 11:23 04/02/19 11:23 04/02/19 11:23 Intake & Output 04/01/19 04/02/19 04/03/19 06:59 06:59 06:59 Intake Total 4086 3313 Balance 4086 3313 Weight 69.6 kg 69.6 kg General appearance: PRESENT: cooperative, mild distress, well-developed Head exam: PRESENT: atraumatic, normocephalic Respiratory exam: PRESENT: clear to auscultation gregor, symmetrical, unlabored. ABSENT: rales, rhonchi, tachypnea, wheezes Cardiovascular exam: PRESENT: RRR, +S1, +S2. ABSENT: diastolic murmur, systolic murmur GI/Abdominal exam: PRESENT: normal bowel sounds, soft, tenderness - Slight epigastric. ABSENT: distended Rectal exam: PRESENT: deferred Musculoskeletal exam: PRESENT: full ROM, normal inspection. ABSENT: deformity Neurological exam: PRESENT: alert, awake, oriented to person, oriented to place, oriented to time, oriented to situation, CN II-XII grossly intact Psychiatric exam: PRESENT: anxious, appropriate affect. ABSENT: agitated Results Laboratory Results: 04/01/19 04:13 04/02/19 06:20 04/02/19 04/02/19 06:20 06:20 VBG pH 7.39 VBG pCO2 34.9 L VBG HCO3 20.6 VBG Base Excess -3.7 Sodium 141.6 Potassium 3.0 L* Chloride 106 Carbon Dioxide 19 L Anion Gap 17 BUN 16 Creatinine 0.76 Est GFR ( Amer) > 60 Glucose 258 H Calcium 8.7 Total Bilirubin 0.6 AST 102 H Alkaline Phosphatase 78 Total Protein 6.3 Albumin 3.4 L 03/31/19 07:30 Troponin I 0.071 Impressions: Abdomen/Pelvis CT 03/31/19 07:56 IMPRESSION: 1. No acute intra-abdominal abnormality. 2. Moderate hiatal hernia. 3. Hepatic steatosis. 4. Age-indeterminate wedge compression deformity of the superior endplate of the T11 vertebral body without retropulsion and with less than 25% loss of the vertebral body height - if the patient is symptomatic correlation with bone scan or MRI could be obtained to evaluate the acuity of the fracture. 5. Extensive vascular calcifications suggestive of diabetes mellitus. Assessment and Plan - Diagnosis (1) Diabetic ketoacidosis Qualifiers: Diabetes mellitus type: type 1 Diabetes mellitus complication detail: [facility] coma Qualified Code(s): E10.10 - Type 1 diabetes mellitus with keto acidosis without coma Is this a current diagnosis for this admission?: Yes Plan: 03/31/2019-the patient is on insulin pump. Unfortunately she ran out of supplies for glucose testing. She was unable to adjust her pump based on glucose readings. She began to feel sick on Friday. She is visiting from [place] and because she thought it might of been the flu, did not seek medical attention. As she worsened and she began to have nausea and vomiting. She presented to the hospital and it was found that her glucose was greater than 500, pH was down, she had an elevated anion gap and abnormal transaminases. She was promptly started on an insulin infusion and given copious amounts of intravenous fluid with aggressive Accu-Cheks and laboratory testing. We will continue to adjust her insulin infusion. When her glucose hits approximately 200 we will change the fluid to dextrose containing normal saline. Based on her basal rate I will use long-acting insulin with short acting sliding scale coverage. I am going to keep her n.p.o. because of her pancreatitis. Hopefully that will resolve and she could begin consuming an oral diet tomorrow. 04/01/2019-anion gap is resolved. Glucoses are improving. There were high earlier and so the D5 normal saline was discontinued and now she is on normal saline. We will continue Accu-Cheks as well as Lantus and sliding scale. She may need to use a glucometer as well as Lantus and regular insulin for her trip home as her basal rate may need to be adjusted. 04/02/2019-ketoacidosis has resolved. The patient still gets intermittent nausea. With further discussion the patient reveals that her last hemoglobin A1c was 10. She knows that her control is less than adequate but it varies. Glucoses have been reasonable. We will continue Lantus and sliding scale coverage. (2) Diabetic neuropathy Qualifiers: Diabetes mellitus type: type 1 Diabetes mellitus complication detail: diabetic polyneuropathy Qualified Code(s): E10.42 - Type 1 diabetes mellitus with diabetic polyneuropathy Is this a current diagnosis for this admission?: Yes Plan: 03/31/2019-we will continue her gabapentin as currently ordered. With her severe neuropathy she has developed Charcot feet. I did ask that her bring her orthotics to the hospital so that we can avoid bedrest. 04/01/2019-continue gabapentin. Interestingly, we briefly discussed diabetic gastroparesis. She has not been diagnosed with this. Because her pancreatitis was only mild I am going to initiate a trial of scheduled Reglan. 04/02/2019-as above. No change. (3) Coronary artery disease Qualifiers: Coronary Disease-Associated Artery/Lesion type: [place] artery [place] vs. transplanted heart: [place] heart Associated angina: without angina Qualified Code(s): I25.10 - Atherosclerotic heart disease of [place] coronary artery without angina pectoris Is this a current diagnosis for this admission?: Yes Plan: 03/31/2019-we will continue her baseline cardiac medications. These include as pirin, carvedilol, lisinopril and we will substitute atorvastatin for her Ruouvastatin. She has no complaints of acute coronary syndrome at this time. 04/01/2019-no symptoms of acute coronary syndrome. Continue same medications. 04/02/2019-resume cardiac diet but no change in medication. (4) Hypertension Qualifiers: Hypertension type: essential hypertension Qualified Code(s): I10 - Essential (primary) hypertension Is this a current diagnosis for this admission?: Yes Plan: 03/31/2019-she is somewhat hypertensive but I believe this is more due to her distress with the nausea and vomiting than anything else. We will continue her current medication regimen. If nausea and vomiting prohibit the use of her oral medications I will have intravenous medication available if needed. 04/01/2019-still with systolic hypertension. This could be due to discomfort. I have decreased the IV fluid. She is net 5 L positive and so I may give a single dose of furosemide. 04/12/2019-continue current medication regimen as control is adequate. (5) Hyperlipidemia Qualifiers: Hyperlipidemia type: unspecified Qualified Code(s): E78.5 - Hyperlipidemia, unspecified Is this a current diagnosis for this admission?: Yes Plan: 03/31/2019-we will substitute atorvastatin for her lovastatin and resume her lovastatin at the time of discharge. 04/01/2019-continue statin therapy 04/02/2019-as above (6) Pancreatitis Qualifiers: Chronicity: acute Pancreatitis type: unspecified pancreatitis type Acute pancreatitis complication: no infection or necrosis Qualified Code(s): K85.90 - Acute pancreatitis without necrosis or infection, unspecified Is this a current diagnosis for this admission?: Yes Plan: 03/31/2019-the patient does not consume alcohol and so it is difficult to identify the etiology of the pancreatitis. She will remain n.p.o. tonight and if her nausea and vomiting improves we will start an oral diet tomorrow. 04/01/2019-we will recheck lipase. Hard to know if pancreatitis, possibly diabetic gastroparesis or her DKA are contributing to her nausea. We will try room temperature water and if she tolerates this consider trial of clear liquids. 04/02/2019-lipase ordered for tomorrow. I do not believe that the ongoing symptoms are related to pancreatitis. Was related to the ketoacidosis as there were also elevated transaminase levels. (7) Elevated transaminase level Is this a current diagnosis for this admission?: Yes Plan: 03/31/2019-it is unclear of the etiology for her elevated transaminase levels. Because of the patient's condition at admission I did need to abbreviate some of the history. I will further discuss this with the patient in the morning. It would not seem obstructive without an elevated bilirubin. I will investigate further before ordering any imaging studies. 04/01/2019-we will recheck levels tomorrow. Once again unsure of the etiology. Continue to monitor. 04/19/2019-improving. (8) Depression Qualifiers: Depression Type: unspecified Qualified Code(s): F32.9 - Major depressive disorder, single episode, unspecified Is this a current diagnosis for this admission?: Yes Plan: 03/31/2019-the Zoloft could also be for anxiety and more likely for depression with anxiety. We will continue her Zoloft 200 mg daily. 04/01/2019-continue current medications. She is also on bupropion. Will need to monitor for serotonin syndrome. 04/02/2019-and I spent approximately 25 minutes reviewing the patient's symptoms and history. She is extremely anxious. I believe this is significantly contributing to the nausea and vomiting. This morning when she woke up after using a benzodiazepine for sleep she felt the best she has since her admission. I explained that anxiety could trigger increased acid production hence gastritis with her nausea and vomiting. I told her we would add lorazepam to the mix and see if this improves her symptoms. (9) Gastritis Qualifiers: Chronicity: unspecified Gastritis bleeding: without bleeding Is this a current diagnosis for this admission?: Yes Plan: 04/02/2019-after the discussion noted above the patient reported that in the past she would use Tums and get some relief from similar although not as severe symptoms. With that in mind and noting the pattern of symptoms I explained a plan that we would try. I am going to maximize her proton pump inhibitor the rapy. I am going to add Carafate. I will make Tums available as needed. In addition I will start an oral diet note of soft mechanical foods as I believe having more subsistence will help decrease her gastric symptoms. If this is effective then hopefully she can discharge tomorrow or Friday. - Plan Summary Summary: 03/31/2019-we will aggressively treat the diabetic ketoacidosis. We will continue medications for all of her comorbidities. The plan will be to discharge when stable so that she may return to the [facility]. I did reach out to her clipper machine Dr. Ahumada. The office graciously faxed notes for Mrs. Burns that have been placed in her chart. 04/01/2019-we will encourage out of bed. Hopefully with scheduled Reglan the patient will have better control of nausea and vomiting. - Time Time Spent with patient: 25-34 minutes Medications reviewed and adjusted accordingly: Yes Anticipated discharge: Home Within: within 48 hours
[2019-04-02] MEDS ORDERED: CALCIUM CARBONATE 500 MG TABLET PO PRN (13:47)
[2019-04-02] MEDS: SUCRALFATE 1 GM TABLET PO SCH ×2 (18:29→23:34)
[2019-04-02] MEDS: LORAZEPAM INJ 2 MG/1 ML VIAL IV PRN (18:29)
[2019-04-02] MEDS: ATORVASTATIN CALCIUM 40 MG TABLET PO SCH (21:52)
[2019-04-02] MEDS: TEMAZEPAM 7.5 MG CAPSULE PO PRN (21:56)
[2019-04-03] MEDS: SUCRALFATE 1 GM TABLET PO SCH ×3 (05:31→18:46)
[2019-04-03] MEDS: HEPARIN SOD (PORCINE) 5,000 UNIT/ML 1 ML VIAL SUBCUT SCH ×3 (05:31→22:16)
[2019-04-03] MEDS: METOCLOPRAMIDE HCL INJ/PF 10 MG/2 ML SDV IV SCH ×3 (05:31→18:46)
[2019-04-03] MEDS: LEVOTHYROXINE SODIUM 0.05 MG TABLET PO SCH (05:31)
[2019-04-03] MEDS: BUPROPION HCL 100 MG TABLET PO SCH ×3 (05:31→22:17)
[2019-04-03] MEDS: NORMAL SALINE 1000 ML 1,000 ML IV PRN ×3 (05:38→22:38)
[2019-04-03 05:58] LABS: ABSOLUTE LYMPHOCYTES (AUTO) 1.8 10^3/uL (0.5-4.7); ABSOLUTE MONOCYTES (AUTO) 0.9 10^3/uL (0.1-1.4); ABSOLUTE NEUT (AUTO) 5.1 10^3/uL (1.7-8.2); BASOPHILS % (AUTO) 0.6 % (0-2); EOSINOPHILS % (AUTO) 0.3 % (0-6); MEAN CORPUSCULAR HEMOGLOBIN 28.7 pg (27.0-33.4); MEAN CORPUSCULAR HGB CONC 34.3 g/dL (32.0-36.0); MEAN CORPUSCULAR VOLUME 84 fl (80-97); MONOCYTES % (AUTO) 11.5 % (3-13); PLATELET COUNT 224 10^3/uL (150-450); RED BLOOD COUNT 4.18 10^6/uL (3.72-5.28); RED CELL DISTRIBUTION WIDTH 15.7 % (11.5-14.0); SEGMENTED NEUTROPHILS % (AUTO) 64.6 % (42-78); TOTAL CELLS COUNTED % (AUTO) 100 %; WHITE BLOOD COUNT 7.8 10^3/uL (4.0-10.5)
[2019-04-03 06:22] LABS: ANION GAP 11 (5-19); BLOOD UREA NITROGEN 12 mg/dL (7-20); CALCIUM 8.3 mg/dL (8.4-10.2); CARBON DIOXIDE 26 mmol/L (22-30); CHLORIDE 104 mmol/L (98-107); GLUCOSE 184 mg/dL (75-110)
[2019-04-03 06:28] LABS: POTASSIUM 2.7 mmol/L (3.6-5.0)
[2019-04-03] MEDS: INSULIN LISPRO 100 UNIT/ML 3 ML VIAL SUBCUT SCH ×3 (06:56→18:46)
[2019-04-03] MEDS: POTASSIUM CHLORIDE 20 MEQ/50 ML RTU IV SCH ×3 (06:59→12:12)
[2019-04-03] MEDS ORDERED: POTASSIUM CHLORIDE 10 MEQ TABLET.ER PO ONE (08:01)
[2019-04-03] MEDS: LISINOPRIL 5 MG TABLET PO SCH (09:11)
[2019-04-03] MEDS: SERTRALINE HCL 50 MG TABLET PO SCH (09:11)
[2019-04-03] MEDS: CARVEDILOL 6.25 MG TABLET PO SCH ×2 (09:11→22:17)
[2019-04-03] MEDS: GABAPENTIN 300 MG CAPSULE PO SCH ×2 (09:12→22:18)
[2019-04-03] MEDS: ASPIRIN 325 MG TABLET, ENT COATED PO SCH (09:12)
[2019-04-03] MEDS: PANTOPRAZOLE SODIUM 40 MG TABLET.DR PO SCH ×2 (09:12→22:17)
[2019-04-03] MEDS: POTASSIUM CHLORIDE 10 MEQ TABLET.ER PO SCH ×3 (09:21→18:46)
[2019-04-03] MEDS: INSULIN GLARGINE,HUM.REC.ANLOG 1,000 UNIT/10 ML VIAL SUBCUT SCH ×3 (09:21→22:15)
--- NOTE | 2019-04-03 10:37 | PDOC PROGRESS REPORT ---
Subjective Progress Note for:: 04/03/19 Subjective:: Patient states she would like to be tried on liquid diet today. Was still nauseous last night and had some retching. Denies any abdominal pain fevers or chills. Denies trouble breathing. States that she still has her NovoLog pen but ran out of her basal given by insulin pump. Reason For Visit: DIABETIC KETOACIDOSIS Physical Exam Vital Signs: Temp Pulse Resp BP Pulse Ox 99.4 F 82 16 167/71 H 93 04/03/19 07:37 04/03/19 07:37 04/03/19 07:37 04/03/19 07:37 04/03/19 07:37 Intake & Output 04/02/19 04/03/19 04/04/19 06:59 06:59 06:59 Intake Total 3313 2614 50 Balance 3313 2614 50 Weight 69.6 kg 70.8 kg General appearance: PRESENT: no acute distress, cooperative Neck exam: ABSENT: JVD Respiratory exam: PRESENT: clear to auscultation gregor, unlabored. ABSENT: symmetrical, tachypnea, wheezes Cardiovascular exam: PRESENT: RRR, +S1, +S2. ABSENT: tachycardia GI/Abdominal exam: PRESENT: normal bowel sounds, soft. ABSENT: firm, guarding, rebound, rigid, tenderness Neurological exam: PRESENT: alert, awake, oriented to person, oriented to place, oriented to time, oriented to situation. ABSENT: altered Results Laboratory Results: 04/03/19 05:19 04/03/19 05:19 04/03/19 04/03/19 05:19 05:19 WBC 7.8 RBC 4.18 Hgb 12.0 Hct 35.0 L MCV 84 MCH 28.7 MCHC 34.3 RDW 15.7 H Plt Count 224 Seg Neutrophils % 64.6 Sodium 140.6 Potassium 2.7 L* Chloride 104 Carbon Dioxide 26 Anion Gap 11 BUN 12 Creatinine 0.68 Est GFR ( Amer) > 60 Glucose 184 H Calcium 8.3 L Magnesium 2.0 Lipase 97.5 03/31/19 07:30 Troponin I 0.071 Impressions: Abdomen/Pelvis CT 03/31/19 07:56 IMPRESSION: 1. No acute intra-abdominal abnormality. 2. Moderate hiatal hernia. 3. Hepatic steatosis. 4. Age-indeterminate wedge compression deformity of the superior endplate of the T11 vertebral body without retropulsion and with less than 25% loss of the vertebral body height - if the patient is symptomatic correlation with bone scan or MRI could be obtained to evaluate the acuity of the fracture. 5. Extensive vascular calcifications suggestive of diabetes mellitus. Assessment and Plan - Diagnosis (1) Hypokalemia due to excessive gastrointestinal loss of potassium Is this a current diagnosis for this admission?: Yes Plan: 04/03/2019-patient still experiencing some nausea. Continue standing Reglan and Zofran as needed. Aggressive repletion of potassium. (2) Diabetic ketoacidosis Qualifiers: Diabetes mellitus type: type 1 Diabetes mellitus complication detail: without coma Qualified Code(s): E10.10 - Type 1 diabetes mellitus with ketoacidosis without coma Is this a current diagnosis for this admission?: Yes Plan: 03/31/2019-the patient is on insulin pump. Unfortunately she ran out of supplies for glucose testing. She was unable to adjust her pump based on glucose readings. She began to feel sick on Friday. She is visiting from [place] and because she thought it might of been the flu, did not seek medical attention. As she worsened and she began to have nausea and vomiting. She presented to the hospital and it was found that her glucose was greater than 500, pH was down, she had an elevated anion gap and abnormal transaminases. She was promptly started on an insulin infusion and given copious amounts of intravenous fluid with aggressive Accu-Cheks and laboratory testing. We will continue to adjust her insulin infusion. When her glucose hits approximately 200 we will change the fluid to dextrose containing normal saline. Based on her basal rate I will use long-acting insulin with short acting sliding scale coverage. I am going to keep her n.p.o. because of her pancreatitis. Hopefully that will resolve and she could begin consuming an oral diet tomorrow. 04/01/2019-anion gap is resolved. Glucoses are improving. There were high earlier and so the D5 normal saline was discontinued and now she is on normal saline. We will continue Accu-Cheks as well as Lantus and sliding scale. She may need to use a glucometer as well as Lantus and regular insulin for her trip home as her basal rate may need to be adjusted. 04/02/2019-ketoacidosis has resolved. The patient still gets intermittent n ausea. With further discussion the patient reveals that her last hemoglobin A1c was 10. She knows that her control is less than adequate but it varies. Glucoses have been reasonable. We will continue Lantus and sliding scale coverage. 04/03/2019-blood glucose still slightly uncontrolled. I will increase Lantus from 8 units to 10 units every 12 hours. Continue to monitor blood glucose via Accu-Cheks AC at bedtime and supplement with sliding scale insulin. Start on full liquid diet and escalate if nausea permits. (3) Elevated transaminase level Is this a current diagnosis for this admission?: Yes Plan: 03/31/2019-it is unclear of the etiology for her elevated transaminase levels. Because of the patient's condition at admission I did need to abbreviate some of the history. I will further discuss this with the patient in the morning. It would not seem obstructive without an elevated bilirubin. I will investigate further before ordering any imaging studies. 04/01/2019-we will recheck levels tomorrow. Once again unsure of the etiology. Continue to monitor. 04/02/2019-improving. 04/03/2019-seem to have improved significantly on yesterday's CMP. (4) Gastritis Qualifiers: Chronicity: unspecified Gastritis bleeding: without bleeding Is this a current diagnosis for this admission?: Yes Plan: 04/02/2019-after the discussion noted above the patient reported that in the past she would use Tums and get some relief from similar although not as severe symptoms. With that in mind and noting the pattern of symptoms I explained a plan that we would try. I am going to maximize her proton pump inhibitor therapy. I am going to add Carafate. I will make Tums available as needed. In addition I will start an oral diet note of soft mechanical foods as I believe having more subsistence will help decrease her gastric symptoms. If this is effective then hopefully she can discharge tomorrow or Friday. 04/03/2019-patient requesting to start liquid diet today before attempting soft diet. Will try full liquids today and then escalate by dinnertime if patient tolerates it. (5) Hypertension Qualifiers: Hypertension type: essential hypertension Qualified Code(s): I10 - Essential (primary) hypertension Is this a current diagnosis for this admission?: Yes Plan: 03/31/2019-she is somewhat hypertensive but I believe this is more due to her distress with the nausea and vomiting than anything else. We will continue her current medication regimen. If nausea and vomiting prohibit the use of her oral medications I will have intravenous medication available if needed. 04/01/2019-still with systolic hypertension. This could be due to discomfort. I have decreased the IV fluid. She is net 5 L positive and so I may give a single dose of furosemide. 04/12/2019-continue current medication regimen as control is adequate. - Time Time Spent with patient: 15-24 minutes
[2019-04-03 17:01] LABS: ANION GAP 14 (5-19); BLOOD UREA NITROGEN 12 mg/dL (7-20); CARBON DIOXIDE 22 mmol/L (22-30); CHLORIDE 101 mmol/L (98-107); GLUCOSE 226 mg/dL (75-110)
[2019-04-03] MEDS: ONDANSETRON HCL INJ/PF 4 MG/2 ML SDV IV PRN (18:46)
[2019-04-03] MEDS: ATORVASTATIN CALCIUM 40 MG TABLET PO SCH (22:18)
[2019-04-03] MEDS: OXYCODONE HCL IR 5 MG TABLET PO PRN (22:20)
[2019-04-04] MEDS: INSULIN LISPRO 100 UNIT/ML 3 ML VIAL SUBCUT SCH ×4 (00:15→18:43)
[2019-04-04] MEDS: SUCRALFATE 1 GM TABLET PO SCH ×4 (00:25→17:45)
[2019-04-04] MEDS: METOCLOPRAMIDE HCL INJ/PF 10 MG/2 ML SDV IV SCH ×4 (00:26→18:56)
[2019-04-04] MEDS: LEVOTHYROXINE SODIUM 0.05 MG TABLET PO SCH (05:47)
[2019-04-04] MEDS: HEPARIN SOD (PORCINE) 5,000 UNIT/ML 1 ML VIAL SUBCUT SCH ×3 (05:47→21:37)
[2019-04-04] MEDS: BUPROPION HCL 100 MG TABLET PO SCH ×3 (05:55→22:20)
[2019-04-04] MEDS: NORMAL SALINE 1000 ML 1,000 ML IV PRN ×3 (06:38→22:29)
[2019-04-04 06:45] LABS: ALBUMIN 2.9 g/dL (3.5-5.0); ALKALINE PHOSPHATASE 75 U/L (38-126); ANION GAP 10 (5-19); ASPARTATE AMINO TRANSFERASE 48 U/L (14-36); BILIRUBIN,DIRECT 0.2 mg/dL (0.0-0.4); BILIRUBIN,TOTAL 0.7 mg/dL (0.2-1.3); BLOOD UREA NITROGEN 10 mg/dL (7-20); CARBON DIOXIDE 27 mmol/L (22-30); CHLORIDE 102 mmol/L (98-107); GLUCOSE 163 mg/dL (75-110); TOTAL PROTEIN 5.6 g/dL (6.3-8.2)
[2019-04-04 07:00] LABS: POTASSIUM 2.6 mmol/L (3.6-5.0)
[2019-04-04] MEDS: ONDANSETRON HCL INJ/PF 4 MG/2 ML SDV IV PRN ×3 (10:11→21:37)
[2019-04-04] MEDS: POTASSIUM CHLORIDE 20 MEQ/50 ML RTU IV SCH ×4 (10:11→15:26)
[2019-04-04] MEDS: INSULIN GLARGINE,HUM.REC.ANLOG 1,000 UNIT/10 ML VIAL SUBCUT SCH ×2 (10:12→21:33)
[2019-04-04] MEDS: LISINOPRIL 5 MG TABLET PO SCH (10:12)
[2019-04-04] MEDS: POTASSIUM CHLORIDE 10 MEQ TABLET.ER PO SCH ×3 (10:12→17:45)
[2019-04-04] MEDS: ASPIRIN 325 MG TABLET, ENT COATED PO SCH (10:12)
[2019-04-04] MEDS: SERTRALINE HCL 50 MG TABLET PO SCH (10:12)
[2019-04-04] MEDS: CARVEDILOL 6.25 MG TABLET PO SCH ×2 (10:13→22:19)
[2019-04-04] MEDS: PANTOPRAZOLE SODIUM 40 MG TABLET.DR PO SCH ×2 (10:13→22:15)
[2019-04-04] MEDS: GABAPENTIN 300 MG CAPSULE PO SCH ×2 (10:13→22:20)
[2019-04-04] MEDS ORDERED: LISINOPRIL 10 MG TABLET PO ONE (14:15)
--- NOTE | 2019-04-04 14:21 | PDOC PROGRESS REPORT ---
Subjective Progress Note for:: 04/04/19 Subjective:: No adverse events overnight. Her blood pressure remains elevated. She said that she is nauseated but she does respond to Zofran. She does not really feel like eating anything. Reason For Visit: DIABETIC KETOACIDOSIS Physical Exam Vital Signs: Temp Pulse Resp BP Pulse Ox 98.6 F 89 17 190/81 H 95 04/04/19 11:38 04/04/19 11:38 04/04/19 11:38 04/04/19 11:38 04/04/19 11:38 Intake & Output 04/03/19 04/04/19 04/05/19 06:59 06:59 06:59 Intake Total 2614 3822 177 Balance 2614 3822 177 Weight 70.8 kg 68.6 kg General appearance: PRESENT: no acute distress, cooperative, disheveled, obese Respiratory exam: PRESENT: clear to auscultation gregor, symmetrical, unlabored. ABSENT: accessory muscle use, chest wall tenderness, crackles, prolonged expiratory phas, rhonchi, tachypnea, wheezes Cardiovascular exam: PRESENT: RRR, +S1, +S2 Pulses: PRESENT: normal carotid pulses Vascular exam: PRESENT: normal capillary refill GI/Abdominal exam: PRESENT: normal bowel sounds, soft. ABSENT: distended, guarding, rebound, tenderness Extremities exam: ABSENT: clubbing, pedal edema Musculoskeletal exam: PRESENT: normal inspection. ABSENT: deformity Neurological exam: PRESENT: alert, awake, oriented to person, oriented to place, oriented to situation Psychiatric exam: PRESENT: appropriate affect, normal mood Skin exam: PRESENT: dry, warm Results Laboratory Results: 04/03/19 05:19 04/04/19 05:51 04/03/19 04/04/19 04/04/19 16:15 05:51 05:51 Sodium 136.8 L 138.6 Potassium 3.0 L* 2.6 L* Chloride 101 102 Carbon Dioxide 22 27 Anion Gap 14 10 BUN 12 10 Creatinine 0.63 0.60 Est GFR ( Amer) > 60 > 60 Glucose 226 H 163 H Calcium 8.0 L 8.0 L Magnesium 1.9 Total Bilirubin 0.7 AST 48 H Alkaline Phosphatase 75 Total Protein 5.6 L Albumin 2.9 L 03/31/19 07:30 Troponin I 0.071 Impressions: Abdomen/Pelvis CT 03/31/19 07:56 IMPRESSION: 1. No acute intra-abdominal abnormality. 2. Moderate hiatal hernia. 3. Hepatic steatosis. 4. Age-indeterminate wedge compression deformity of the superior endplate of the T11 vertebral body without retropulsion and with less than 25% loss of the vertebral body height - if the patient is symptomatic correlation with bone scan or MRI could be obtained to evaluate the acuity of the fracture. 5. Extensive vascular calcifications suggestive of diabetes mellitus. Assessment and Plan - Diagnosis (1) Diabetic ketoacidosis Qualifiers: Diabetes mellitus type: type 1 Diabetes mellitus complication detail: without coma Qualified Code(s): E10.10 - Type 1 diabetes mellitus with ketoacidosis without coma Is this a current diagnosis for this admission?: Yes Plan: This is essentially resolved. She still has some low potassium that we are re placing. We will check it again this evening to see if she needs more potassium. Nausea responds to Zofran. Well continue to encourage her to take p.o. as tolerated. - Time Time Spent with patient: 15-24 minutes
[2019-04-04 16:35] LABS: ANION GAP 12 (5-19); BLOOD UREA NITROGEN 8 mg/dL (7-20); CALCIUM 7.8 mg/dL (8.4-10.2); CARBON DIOXIDE 24 mmol/L (22-30); CHLORIDE 100 mmol/L (98-107); GLUCOSE 149 mg/dL (75-110); POTASSIUM 3.1 mmol/L (3.6-5.0)
[2019-04-04] MEDS ORDERED: PROMETHAZINE HCL INJ 25 MG/1 ML VIAL IM ONE (16:45)
[2019-04-04] MEDS ORDERED: PROMETHAZINE HCL INJ 25 MG/1 ML VIAL ONE (18:53)
[2019-04-04] MEDS: POTASSI CL 20 MEQ/50 ML RIDER 20 MEQ/50 ML RTUPB IV SCH ×2 (20:08→21:40)
[2019-04-04] MEDS: HYDRALAZINE HCL INJ/PF 20 MG/1 ML SDV IV PRN (20:38)
[2019-04-04] MEDS: ATORVASTATIN CALCIUM 40 MG TABLET PO SCH (22:20)
[2019-04-04] MEDS: MAG HYDROX/AL HYDROX/SIMETH SUSP 30 ML UDCUP PO PRN (22:20)
[2019-04-04] MEDS ORDERED: PANTOPRAZOLE SODIUM 40 MG VIAL IV ONE (22:30)
[2019-04-05] MEDS: SUCRALFATE 1 GM TABLET PO SCH ×4 (00:30→17:57)
[2019-04-05] MEDS: INSULIN LISPRO 100 UNIT/ML 3 ML VIAL SUBCUT SCH ×4 (00:37→17:58)
[2019-04-05] MEDS: METOCLOPRAMIDE HCL INJ/PF 10 MG/2 ML SDV IV SCH ×4 (00:38→17:58)
[2019-04-05] MEDS: ONDANSETRON HCL INJ/PF 4 MG/2 ML SDV IV PRN ×4 (04:53→22:30)
[2019-04-05] MEDS: HEPARIN SOD (PORCINE) 5,000 UNIT/ML 1 ML VIAL SUBCUT SCH ×3 (05:37→22:30)
[2019-04-05] MEDS: LEVOTHYROXINE SODIUM 0.05 MG TABLET PO SCH (05:39)
[2019-04-05] MEDS: BUPROPION HCL 100 MG TABLET PO SCH ×3 (05:40→22:31)
[2019-04-05] MEDS: NORMAL SALINE 1000 ML 1,000 ML IV PRN (06:33)
[2019-04-05] MEDS: MAG HYDROX/AL HYDROX/SIMETH SUSP 30 ML UDCUP PO PRN ×4 (08:10→21:40)
[2019-04-05 09:47] LABS: ANION GAP 9 (5-19); BLOOD UREA NITROGEN 6 mg/dL (7-20); CALCIUM 8.2 mg/dL (8.4-10.2); CARBON DIOXIDE 27 mmol/L (22-30); CHLORIDE 102 mmol/L (98-107); GLUCOSE 123 mg/dL (75-110)
[2019-04-05 09:56] LABS: POTASSIUM 2.8 mmol/L (3.6-5.0)
[2019-04-05] MEDS: PANTOPRAZOLE SODIUM 40 MG VIAL IV SCH ×2 (10:15→22:30)
[2019-04-05] MEDS: POTASSIUM CHLORIDE 10 MEQ TABLET.ER PO SCH ×3 (10:35→17:57)
[2019-04-05] MEDS: CARVEDILOL 6.25 MG TABLET PO SCH ×2 (10:35→22:31)
[2019-04-05] MEDS: SERTRALINE HCL 50 MG TABLET PO SCH (10:36)
[2019-04-05] MEDS: GABAPENTIN 300 MG CAPSULE PO SCH ×2 (10:36→22:31)
[2019-04-05] MEDS: ASPIRIN 325 MG TABLET, ENT COATED PO SCH (10:36)
[2019-04-05] MEDS: LISINOPRIL 10 MG TABLET PO SCH (12:04)
[2019-04-05] MEDS: INSULIN GLARGINE,HUM.REC.ANLOG 1,000 UNIT/10 ML VIAL SUBCUT SCH ×2 (12:07→22:30)
[2019-04-05] MEDS: POTASSIUM CHLORIDE 20 MEQ/50 ML RTU IV SCH ×3 (12:09→16:49)
[2019-04-05] MEDS: POTASSI CL 20 MEQ/D5-1/2NS 1L 1000 ML IV PRN ×2 (12:09→20:04)
--- NOTE | 2019-04-05 15:48 | PDOC PROGRESS REPORT ---
Subjective Progress Note for:: 04/05/19 Subjective:: No adverse events overnight. She got some Maalox and that helped her nausea quite a bit. She was able to keep some food down this morning. Reason For Visit: DIABETIC KETOACIDOSIS Physical Exam Vital Signs: Temp Pulse Resp BP Pulse Ox 98.6 F 93 18 141/70 H 97 04/05/19 11:21 04/05/19 11:21 04/05/19 11:21 04/05/19 11:21 04/05/19 11:21 Intake & Output 04/04/19 04/05/19 04/06/19 06:59 06:59 06:59 Intake Total 3822 3442 200 Balance 3822 3442 200 Weight 68.6 kg 71.8 kg General appearance: PRESENT: no acute distress, cooperative, disheveled, obese Respiratory exam: PRESENT: clear to auscultation gregor, symmetrical, unlabored. ABSENT: accessory muscle use, chest wall tenderness, crackles, prolonged expiratory phas, rhonchi, tachypnea, wheezes Cardiovascular exam: PRESENT: RRR, +S1, +S2 Pulses: PRESENT: normal carotid pulses Vascular exam: PRESENT: normal capillary refill GI/Abdominal exam: PRESENT: normal bowel sounds, soft. ABSENT: distended, guarding, rebound, tenderness Extremities exam: ABSENT: clubbing, pedal edema Musculoskeletal exam: PRESENT: normal inspection. ABSENT: deformity Neurological exam: PRESENT: alert, awake, oriented to person, oriented to place, oriented to situation Psychiatric exam: PRESENT: appropriate affect, normal mood Skin exam: PRESENT: dry, warm Results Laboratory Results: 04/03/19 05:19 04/05/19 09:10 04/04/19 04/05/19 16:00 09:10 Sodium 136.4 L 138.0 Potassium 3.1 L 2.8 L* Chloride 100 102 Carbon Dioxide 24 27 Anion Gap 12 9 BUN 8 6 L Creatinine 0.53 0.52 Est GFR ( Amer) > 60 > 60 Glucose 149 H 123 H Calcium 7.8 L 8.2 L 03/31/19 07:30 Troponin I 0.071 Impressions: Abdomen/Pelvis CT 03/31/19 07:56 IMPRESSION: 1. No acute intra-abdominal abnormality. 2. Moderate hiatal hernia. 3. Hepatic steatosis. 4. Age-indeterminate wedge compression deformity of the superior endplate of the T11 vertebral body without retropulsion and with less than 25% loss of the vertebral body height - if the patient is symptomatic correlation with bone scan or MRI could be obtained to evaluate the acuity of the fracture. 5. Extensive vascular calcifications suggestive of diabetes mellitus. Assessment and Plan - Diagnosis (1) Diabetic ketoacidosis Qualifiers: Diabetes mellitus type: type 1 Diabetes mellitus complication detail: without coma Qualified Code(s): E10.10 - Type 1 diabetes mellitus with ketoacidosis without coma Is this a current diagnosis for this admission?: Yes Plan: Now resolved. (2) Hypokalemia due to excessive gastrointestinal loss of potassium Is this a current diagnosis for this admission?: Yes Plan: Magnesium was normal yesterday, will replacing this with IV potassium. Switched upper IV fluids to something with potassium in it. - Time Time Spent with patient: 15-24 minutes
[2019-04-05] MEDS: OXYCODONE HCL IR 5 MG TABLET PO PRN (22:29)
[2019-04-05] MEDS: ATORVASTATIN CALCIUM 40 MG TABLET PO SCH (22:31)
[2019-04-06] MEDS: GABAPENTIN 300 MG CAPSULE PO SCH ×3 (00:53→22:44)
[2019-04-06] MEDS: METOCLOPRAMIDE HCL INJ/PF 10 MG/2 ML SDV IV SCH ×4 (00:54→18:15)
[2019-04-06] MEDS: SUCRALFATE 1 GM TABLET PO SCH ×4 (00:54→18:18)
[2019-04-06] MEDS: INSULIN LISPRO 100 UNIT/ML 3 ML VIAL SUBCUT SCH ×4 (00:54→18:19)
[2019-04-06] MEDS: BUPROPION HCL 100 MG TABLET PO SCH ×3 (06:00→22:44)
[2019-04-06] MEDS: HEPARIN SOD (PORCINE) 5,000 UNIT/ML 1 ML VIAL SUBCUT SCH ×3 (06:08→22:14)
[2019-04-06] MEDS: LEVOTHYROXINE SODIUM 0.05 MG TABLET PO SCH (06:09)
[2019-04-06] MEDS: MAG HYDROX/AL HYDROX/SIMETH SUSP 30 ML UDCUP PO PRN (06:19)
[2019-04-06] MEDS: PANTOPRAZOLE SODIUM 40 MG VIAL IV SCH ×2 (09:15→22:47)
[2019-04-06] MEDS: INSULIN GLARGINE,HUM.REC.ANLOG 1,000 UNIT/10 ML VIAL SUBCUT SCH ×2 (09:16→22:42)
[2019-04-06] MEDS: POTASSI CL 20 MEQ/D5-1/2NS 1L 1000 ML IV PRN ×2 (09:20→22:23)
[2019-04-06] MEDS ORDERED: DEXTROSE 40% GEL 15 GM TUBE PO PRN ×2 (10:42)
[2019-04-06] MEDS ORDERED: GLUCAGON,HUMAN RECOMB 1 MG INJ SUBCUT PRN (10:42)
[2019-04-06] MEDS ORDERED: DEXTROSE 50%-WATER 25 GM/50 ML DISP.SYRIN IV PRN ×2 (10:42)
[2019-04-06 11:02] LABS: ANION GAP 10 (5-19); BLOOD UREA NITROGEN 5 mg/dL (7-20); CALCIUM 8.5 mg/dL (8.4-10.2); CARBON DIOXIDE 27 mmol/L (22-30); CHLORIDE 101 mmol/L (98-107); GLUCOSE 163 mg/dL (75-110); POTASSIUM 3.3 mmol/L (3.6-5.0)
[2019-04-06] MEDS: CARVEDILOL 6.25 MG TABLET PO SCH ×2 (12:18→22:40)
[2019-04-06] MEDS: POTASSIUM CHLORIDE 10 MEQ TABLET.ER PO SCH ×3 (12:18→18:13)
[2019-04-06] MEDS: LISINOPRIL 10 MG TABLET PO SCH (12:19)
[2019-04-06] MEDS: ASPIRIN 325 MG TABLET, ENT COATED PO SCH (12:19)
[2019-04-06] MEDS: SERTRALINE HCL 50 MG TABLET PO SCH (12:20)
--- NOTE | 2019-04-06 15:33 | PDOC PROGRESS REPORT ---
Subjective Progress Note for:: 04/06/19 Subjective:: No adverse events overnight. She said she still feels like she has to take some Mylanta before she tries to eat something, and she is only on full liquids but says that every time she tries to eat or drink something she vomits it right back up. She is not having belly swelling and told me she is passing gas but told the nurse she was not. I reviewed her CT scan from a few days ago it was unremarkable. Reason For Visit: DIABETIC KETOACIDOSIS Physical Exam Vital Signs: Temp Pulse Resp BP Pulse Ox 98.6 F 76 18 139/50 H 95 04/06/19 11:34 04/06/19 14:00 04/06/19 11:34 04/06/19 11:34 04/06/19 11:34 Intake & Output 04/05/19 04/06/19 04/07/19 06:59 06:59 06:59 Intake Total 3442 1383 1095 Output Total 900 Balance 3442 483 1095 Weight 71.8 kg 70.9 kg General appearance: PRESENT: no acute distress, cooperative, disheveled, obese Respiratory exam: PRESENT: clear to auscultation gregor, symmetrical, unlabored. ABSENT: accessory muscle use, chest wall tenderness, crackles, prolonged expiratory phas, rhonchi, tachypnea, wheezes Cardiovascular exam: PRESENT: RRR, +S1, +S2 Pulses: PRESENT: normal carotid pulses Vascular exam: PRESENT: normal capillary refill GI/Abdominal exam: PRESENT: normal bowel sounds, soft. ABSENT: distended, guarding, rebound, tenderness Extremities exam: ABSENT: clubbing, pedal edema Musculoskeletal exam: PRESENT: normal inspection. ABSENT: deformity Neurological exam: PRESENT: alert, awake, oriented to person, oriented to place, oriented to situation Psychiatric exam: PRESENT: appropriate affect, normal mood Skin exam: PRESENT: dry, warm Results Laboratory Results: 04/03/19 05:19 04/06/19 09:59 04/06/19 09:59 Sodium 138.1 Potassium 3.3 L Chloride 101 Carbon Dioxide 27 Anion Gap 10 BUN 5 L Creatinine 0.55 Est GFR ( Amer) > 60 Glucose 163 H Calcium 8.5 03/31/19 07:30 Troponin I 0.071 Impressions: Abdomen/Pelvis CT 03/31/19 07:56 IMPRESSION: 1. No acute intra-abdominal abnormality. 2. Moderate hiatal hernia. 3. Hepatic steatosis. 4. Age-indeterminate wedge compression deformity of the superior endplate of the T11 vertebral body without retropulsion and with less than 25% loss of the vertebral body height - if the patient is symptomatic correlation with bone scan or MRI could be obtained to evaluate the acuity of the fracture. 5. Extensive vascular calcifications suggestive of diabetes mellitus. Assessment and Plan - Diagnosis (1) Diabetic ketoacidosis Qualifiers: Diabetes mellitus type: type 1 Diabetes mellitus complication detail: [facility] coma Qualified Code(s): E10.10 - Type 1 diabetes mellitus with ket oacidosis without coma Is this a current diagnosis for this admission?: Yes Plan: Now resolved. (2) Hypokalemia due to excessive gastrointestinal loss of potassium Is this a current diagnosis for this admission?: Yes Plan: Magnesium was normal, will replace this with IV potassium. Switched up her IV fluids to something with potassium in it. (3) Nausea & vomiting Qualifiers: Vomiting type: unspecified Vomiting Intractability: intractable Qualified Code(s): R11.2 - Nausea with vomiting, unspecified Is this a current diagnosis for this admission?: Yes Plan: Apparently she was able to tolerate foods and liquids of all consistencies prior to being admitted to the hospital. I have spoken to Dr. Faulkner who agrees that she would probably benefit from having an EGD to visualize the issue to make sure she does not have some sort of obstruction or stricture. - Time Time Spent with patient: 25-34 minutes
--- NOTE | 2019-04-06 18:42 | PDOC CONSULTATION ---
Consultation Consult Date: 04/06/19 Provider Consulted: SWETHA BELL Consult reason:: dysphagia, nausea and vomiting History of Present Illness Admission Date/PCP: 03/31/19 11:03 History of Present Illness: GORDON WALTON is a 63 year old female I was called earlier today, about this patient who had been admitted a few days earlier Dr Hutchinson contacted me about patient having difficulty with swallowing and having regurgitation patient has had EGD in the past CT scan done on this admission that was essentially negative patient states that when she eats she regurgitates will need evaluation for EGD to determine if there is a potential obstruction vs stricture patient could have a pill induced esophagitis although she denies having any odynophagia she is being treated for DM will schedule in am Past Medical History Cardiac Medical History: Reports: Coronary Artery Disease Pulmonary Medical History: Reports: None EENT Medical History: Reports: Other - Diabetic retinopathy Neurological Medical History: Reports: Other - Diabetic neuropathy Denies: Hemorrhagic CVA, Ischemic CVA Endocrine Medical History: Reports: Diabetes Mellitus Type 1 Renal/ Medical History: Denies: Chronic Kidney Disease Malignancy Medical History: Reports: None GI Medical History: Denies: Cirrhosis, Crohn's Disease, Gastroesophageal Reflux Disease, Ulcerative Colitis Musculoskeltal Medical History: Reports: Other - Bilateral Charcot feet Denies: Arthritis, Fibromyalgia, Gout Psychiatric Medical History: Reports: Depression Denies: Alcohol Dependency, Dementia, Substance Abuse, Tobacco Dependency Traumatic Medical History: Reports: None Hematology: Reports: Other - Diabetic retinopathy Denies: Anemia, Bleeding Tendencies Infectious Medical History: Reports: None Past Surgical History Past Surgical History: Reports: Coronary Stent, Orthopedic Surgery - Right foot reconstruction for Charcot foot Social History Lives with: Family Smoking Status: Never Smoker Electronic Cigarette use?: No Frequency of Alcohol Use: None - History of heavy alcohol use 20 years ago Hx Recreational Drug Use: No Drugs: None Hx Prescription Drug Abuse: No - Advance Directive Resuscitation Status: Do Not Resuscitate Family History Family History: Reviewed & Not Pertinent Parental Family History Reviewed: Yes Children Family History Reviewed: Unknown Sibling(s) Family History Reviewed.: Unknown Medication/Allergy Home Medications: Aspirin [Aspirin 325 mg Tablet] 325 mg PO DAILY 03/31/19 Bupropion HCl [Wellbutrin Xl 150 mg 24hr Tablet] 150 mg PO Q12 03/31/19 Carvedilol [Coreg] 6.25 mg PO Q12 03/31/19 Gabapentin [Neurontin 300 mg Capsule] 300 mg PO Q12 03/31/19 Insulin Pump Cartridge [Omnipod] 1 each SQ .ASDIR 03/31/19 Levothyroxine Sodium [Synthroid 50 Mcg Tablet] 50 mcg PO Q6AM 03/31/19 Lisinopril [Prinivil 5 mg Tablet] 5 mg PO DAILY 03/31/19 Omeprazole Magnesium [Prilosec Otc] 40 mg PO Q6AM 03/31/19 Oxycodone HCl [Oxy-Ir 5 mg Tablet] 5 mg PO BIDP PRN 03/31/19 Rosuvastatin Calcium [Crestor] 40 mg PO DAILY 03/31/19 Sertraline HCl [Zoloft] 200 mg PO DAILY 03/31/19 Allergies/Adverse Reactions: No Known Allergies Allergy (Unverified 03/31/19 08:00) Review of Systems Constitutional: ABSENT: fever(s), headache(s), night sweats Eyes: ABSENT: visual disturbances Ears: ABSENT: hearing changes Nose, Mouth, and Throat: ABSENT: mouth pain Cardiovascular: ABSENT: edema, palpitations Respiratory: ABSENT: dyspnea, hemoptysis Gastrointestinal: PRESENT: dysphagia, heartburn. ABSENT: hematemesis, h ematochezia Genitourinary: ABSENT: dysuria, hematuria Neurological: ABSENT: syncope, tingling, tremor(s), vertigo Endocrine: ABSENT: polydipsia, polyphagia Hematologic/Lymphatic: ABSENT: easy bruising Physical Exam Vital Signs: Temp Pulse Resp BP Pulse Ox 98.3 F 79 18 142/65 H 95 04/06/19 15:40 04/06/19 15:40 04/06/19 15:40 04/06/19 15:40 04/06/19 15:40 Intake & Output 04/05/19 04/06/19 04/07/19 06:59 06:59 06:59 Intake Total 3442 1383 1095 Output Total 900 Balance 3442 483 1095 Weight 71.8 kg 70.9 kg General appearance: PRESENT: no acute distress, cooperative Head exam: PRESENT: atraumatic, normocephalic Eye exam: PRESENT: EOMI, PERRLA. ABSENT: nystagmus, scleral icterus Mouth exam: PRESENT: moist, neck supple Teeth exam: ABSENT: edentulous Throat exam: ABSENT: tonsillogmegaly Neck exam: ABSENT: meningismus, tenderness, thyromegaly Respiratory exam: PRESENT: symmetrical. ABSENT: tachypnea, unlabored, wheezes Cardiovascular exam: PRESENT: RRR, +S1, +S2 GI/Abdominal exam: PRESENT: normal bowel sounds, soft. ABSENT: Wong's sign, rebound, rigid, tenderness Extremities exam: ABSENT: joint swelling, pedal edema Musculoskeletal exam: PRESENT: full ROM Neurological exam: PRESENT: alert, altered, awake Skin exam: PRESENT: normal color. ABSENT: mottled, pallor, urticaria, vesicles Results Laboratory Results: 04/03/19 05:19 04/06/19 09:59 04/06/19 09:59 Sodium 138.1 Potassium 3.3 L Chloride 101 Carbon Dioxide 27 Anion Gap 10 BUN 5 L Creatinine 0.55 Est GFR ( Amer) > 60 Glucose 163 H Calcium 8.5 03/31/19 07:30 Troponin I 0.071 Impressions: Abdomen/Pelvis CT 03/31/19 07:56 IMPRESSION: 1. No acute intra-abdominal abnormality. 2. Moderate hiatal hernia. 3. Hepatic steatosis. 4. Age-indeterminate wedge compression deformity of the superior endplate of the T11 vertebral body without retropulsion and with less than 25% loss of the vertebral body height - if the patient is symptomatic correlation with bone scan or MRI could be obtained to evaluate the acuity of the fracture. 5. Extensive vascular calcifications suggestive of diabetes mellitus. Assessment & Plan - Diagnosis (1) Nausea & vomiting Qualifiers: Vomiting type: unspecified Vomiting Intractability: intractable Qualified Code(s): R11.2 - Nausea with vomiting, unspecified Is this a current diagnosis for this admission?: Yes Plan: will schedule EGD differential to include possible esophageal stricture due to GERD possible gastroparesis gastric outlet obstruction will have EGD done Risks, benefits and alternatives are discussed with the patient in detail further recommendations to follow - Time Time Spent: 50 to 70 Minutes
[2019-04-06] MEDS: ONDANSETRON HCL INJ/PF 4 MG/2 ML SDV IV PRN (22:14)
[2019-04-06] MEDS: LORAZEPAM INJ 2 MG/1 ML VIAL IV PRN (22:34)
[2019-04-06] MEDS: ATORVASTATIN CALCIUM 40 MG TABLET PO SCH (22:44)
[2019-04-07] MEDS: SUCRALFATE 1 GM TABLET PO SCH ×4 (00:45→17:36)
[2019-04-07] MEDS: METOCLOPRAMIDE HCL INJ/PF 10 MG/2 ML SDV IV SCH ×4 (00:52→17:55)
[2019-04-07] MEDS: INSULIN LISPRO 100 UNIT/ML 3 ML VIAL SUBCUT SCH ×4 (00:53→17:55)
[2019-04-07] MEDS: HEPARIN SOD (PORCINE) 5,000 UNIT/ML 1 ML VIAL SUBCUT SCH ×3 (06:20→21:48)
[2019-04-07] MEDS: LEVOTHYROXINE SODIUM 0.05 MG TABLET PO SCH (06:34)
[2019-04-07] MEDS: BUPROPION HCL 100 MG TABLET PO SCH ×3 (06:34→21:42)
[2019-04-07] MEDS: POTASSIUM CHLORIDE 10 MEQ TABLET.ER PO SCH ×3 (08:33→16:07)
[2019-04-07] MEDS ORDERED: GLUCAGON,HUMAN RECOMB 1 MG INJ ONE (08:35)
[2019-04-07] MEDS ORDERED: NALOXONE HCL INJ/PF 0.4 MG/1 ML SDV ONE (08:35)
[2019-04-07] MEDS ORDERED: FLUMAZENIL INJ 0.5 MG/5 ML VIAL ONE (08:35)
[2019-04-07] MEDS ORDERED: EPINEPHRINE INJ 1 MG/10 ML DISP.SYRIN ONE (08:35)
[2019-04-07] MEDS ORDERED: ONDANSETRON HCL INJ/PF 4 MG/2 ML SDV ONE (08:35)
[2019-04-07] MEDS ORDERED: DIPHENHYDRAMINE HCL 50 MG/ML VIAL ONE (08:35)
[2019-04-07] MEDS: MIDAZOLAM 2 MG/2 ML INJ ONE ×2 (08:54→08:59)
[2019-04-07] MEDS: FENTANYL CITRATE INJ/PF 100 MCG/2 ML AMPUL ONE ×2 (08:54→08:59)
--- NOTE | 2019-04-07 09:13 | Operative Report ---
Operative Report DATE OF SURGERY: 04/07/19 Operative Report: The risks benefits and alternatives of the procedure explained to the patient in detail and informed consent is obtained.A GIF Olympus video scope was inserted into the patient's mouth and hypopharynx, the esophagus is identified intubated and insufflated ,the scope was then advanced through the esophagus stomach and duodenum, retroflexion maneuver is done, the esophagus stomach and first and second portions of the duodenum examined. PREOPERATIVE DIAGNOSIS: Dysphagia, nausea vomiting POSTOPERATIVE DIAGNOSIS: Severe erosive esophagitis versus small areas of ulceration. Small hiatal hernia. Gastritis status post biopsy. Gastric polyp status post biopsy rule out fundic gland polyps OPERATION: EGD with biopsy SURGEON: SWETHA BELL ANESTHESIA: Moderate Sedation - 4 mg of Versed, 50 mcg of fentanyl. 4 mg of additional Zofran. Conscious sedation monitoring time 30 minutes. TISSUE REMOVED OR ALTERED: As noted above. COMPLICATIONS: None. ESTIMATED BLOOD LOSS: None. INTRAOPERATIVE FINDINGS: As noted above. PROCEDURE: Patient tolerated the procedure well. No immediate postprocedure complications are noted. Patient is sent back to her room in good condition. Wait on biopsies. Resume diet as tolerated. Family was updated. I did speak to Dr. Hutchinson who is the hospitalist taking care of the patient. Start Carafate, and PPI Antiemetics as needed
[2019-04-07] MEDS: SERTRALINE HCL 50 MG TABLET PO SCH (11:20)
[2019-04-07] MEDS: ASPIRIN 325 MG TABLET, ENT COATED PO SCH (11:20)
[2019-04-07] MEDS: GABAPENTIN 300 MG CAPSULE PO SCH ×2 (11:20→21:42)
[2019-04-07] MEDS: LISINOPRIL 10 MG TABLET PO SCH (11:20)
[2019-04-07] MEDS: INSULIN GLARGINE,HUM.REC.ANLOG 1,000 UNIT/10 ML VIAL SUBCUT SCH ×2 (11:34→21:49)
[2019-04-07] MEDS: CARVEDILOL 6.25 MG TABLET PO SCH ×2 (11:35→21:41)
[2019-04-07] MEDS: PANTOPRAZOLE SODIUM 40 MG VIAL IV SCH ×2 (11:35→21:49)
[2019-04-07] MEDS: POTASSI CL 20 MEQ/D5-1/2NS 1L 1000 ML IV PRN (14:06)
--- NOTE | 2019-04-07 16:00 | PDOC PROGRESS REPORT ---
Subjective Progress Note for:: 04/07/19 Subjective:: No adverse events overnight. Condition remains unchanged. She says she does not feel nauseated until she tries to eat or drink anything. Reason For Visit: DIABETIC KETOACIDOSIS Physical Exam Vital Signs: Temp Pulse Resp BP Pulse Ox 98.4 F 72 16 145/60 H 94 04/07/19 11:54 04/07/19 14:00 04/07/19 11:54 04/07/19 11:54 04/07/19 11:54 Intake & Output 04/06/19 04/07/19 04/08/19 06:59 06:59 06:59 Intake Total 1383 2414 1020 Output Total 900 900 550 Balance 483 1514 470 Weight 70.9 kg 71.3 kg General appearance: PRESENT: no acute distress, cooperative, disheveled, obese Respiratory exam: PRESENT: clear to auscultation gregor, symmetrical, unlabored. ABSENT: accessory muscle use, chest wall tenderness, crackles, prolonged expiratory phas, rhonchi, tachypnea, wheezes Cardiovascular exam: PRESENT: RRR, +S1, +S2 Pulses: PRESENT: normal carotid pulses Vascular exam: PRESENT: normal capillary refill GI/Abdominal exam: PRESENT: normal bowel sounds, soft. ABSENT: distended, guarding, rebound, tenderness Extremities exam: ABSENT: clubbing, pedal edema Musculoskeletal exam: PRESENT: normal inspection. ABSENT: deformity Neurological exam: PRESENT: alert, awake, oriented to person, oriented to place, oriented to situation Psychiatric exam: PRESENT: appropriate affect, normal mood Skin exam: PRESENT: dry, warm Results Laboratory Results: 04/03/19 05:19 04/06/19 09:59 03/31/19 07:30 Troponin I 0.071 Impressions: Abdomen/Pelvis CT 03/31/19 07:56 IMPRESSION: 1. No acute intra-abdominal abnormality. 2. Moderate hiatal hernia. 3. Hepatic steatosis. 4. Age-indeterminate wedge compression deformity of the superior endplate of the T11 vertebral body without retropulsion and with less than 25% loss of the vertebral body height - if the patient is symptomatic correlation with bone scan or MRI could be obtained to evaluate the acuity of the fracture. 5. Extensive vascular calcifications suggestive of diabetes mellitus. Assessment and Plan - Diagnosis (1) Diabetic ketoacidosis Qualifiers: Diabetes mellitus type: type 1 Diabetes mellitus complication detail: without coma Qualified Code(s): E10.10 - Type 1 diabetes mellitus with ketoacidosis without coma Is this a current diagnosis for this admission?: Yes Plan: Now resolved. (2) Hypokalemia due to excessive gastrointestinal loss of potassium Is this a current diagnosis for this admission?: Yes Plan: Resolved (3) Nausea & vomiting Qualifiers: Vomiting type: unspecified Vomiting Intractability: intractable Qualified Code(s): R11.2 - Nausea with vomiting, unspecified Is this a current diagnosis for this admission?: Yes Plan: Antiemetics as needed, PPI and Carafate for distal erosive esophagitis and gastritis found on EGD, negative for stricture or obstruction - Time Time Spent with patient: 15-24 minutes
[2019-04-07] MEDS: ONDANSETRON HCL INJ/PF 4 MG/2 ML SDV IV PRN ×2 (16:07→20:22)
[2019-04-07] MEDS: LORAZEPAM INJ 2 MG/1 ML VIAL IV PRN (20:22)
[2019-04-07] MEDS: ATORVASTATIN CALCIUM 40 MG TABLET PO SCH (21:42)
[2019-04-08] MEDS: INSULIN LISPRO 100 UNIT/ML 3 ML VIAL SUBCUT SCH ×4 (00:56→17:07)
[2019-04-08] MEDS: SUCRALFATE 1 GM TABLET PO SCH ×4 (00:56→17:07)
[2019-04-08] MEDS: METOCLOPRAMIDE HCL INJ/PF 10 MG/2 ML SDV IV SCH ×4 (01:01→17:07)
[2019-04-08] MEDS: POTASSI CL 20 MEQ/D5-1/2NS 1L 1000 ML IV PRN ×2 (04:16→18:02)
[2019-04-08] MEDS: ONDANSETRON HCL INJ/PF 4 MG/2 ML SDV IV PRN ×4 (04:34→21:21)
[2019-04-08] MEDS: HEPARIN SOD (PORCINE) 5,000 UNIT/ML 1 ML VIAL SUBCUT SCH ×3 (05:40→21:31)
[2019-04-08] MEDS: LEVOTHYROXINE SODIUM 0.05 MG TABLET PO SCH (08:32)
[2019-04-08] MEDS: BUPROPION HCL 100 MG TABLET PO SCH ×3 (08:32→21:20)
[2019-04-08] MEDS: ASPIRIN 325 MG TABLET, ENT COATED PO SCH (09:29)
[2019-04-08] MEDS: POTASSIUM CHLORIDE 10 MEQ TABLET.ER PO SCH ×3 (09:29→16:56)
[2019-04-08] MEDS: SERTRALINE HCL 50 MG TABLET PO SCH (09:30)
[2019-04-08] MEDS: GABAPENTIN 300 MG CAPSULE PO SCH ×2 (09:30→21:34)
[2019-04-08] MEDS: LISINOPRIL 10 MG TABLET PO SCH (09:36)
[2019-04-08] MEDS: PANTOPRAZOLE SODIUM 40 MG VIAL IV SCH ×2 (09:36→21:30)
[2019-04-08] MEDS: CARVEDILOL 6.25 MG TABLET PO SCH ×2 (09:36→21:33)
[2019-04-08] MEDS: INSULIN GLARGINE,HUM.REC.ANLOG 1,000 UNIT/10 ML VIAL SUBCUT SCH ×2 (09:36→21:50)
[2019-04-08] MEDS: LORAZEPAM INJ 2 MG/1 ML VIAL IV PRN (12:50)
--- NOTE | 2019-04-08 15:34 | PDOC PROGRESS REPORT ---
Subjective Progress Note for:: 04/08/19 Subjective:: No adverse events overnight. She said she ate some grits this morning but was intermittently not compliant with her medication regimen. She apparently she took some pills but for whatever reason she would not take her Carafate even though it was crushed up in some water. I told her that if she has any desire whatsoever to leave the hospital then she has to take the Carafate, and I said this in the presence of her , who nodded his head vigorously in agre ement. Reason For Visit: DIABETIC KETOACIDOSIS Physical Exam Vital Signs: Temp Pulse Resp BP Pulse Ox 97.9 F 67 16 133/57 H 94 04/08/19 11:30 04/08/19 14:00 04/08/19 11:30 04/08/19 11:30 04/08/19 11:30 Intake & Output 04/07/19 04/08/19 04/09/19 06:59 06:59 06:59 Intake Total 2414 2120 Output Total 900 1875 Balance 1514 245 Weight 71.3 kg 71.7 kg General appearance: PRESENT: no acute distress, cooperative, disheveled, obese Respiratory exam: PRESENT: clear to auscultation gregor, symmetrical, unlabored. ABSENT: accessory muscle use, chest wall tenderness, crackles, prolonged expiratory phas, rhonchi, tachypnea, wheezes Cardiovascular exam: PRESENT: RRR, +S1, +S2 Pulses: PRESENT: normal carotid pulses Vascular exam: PRESENT: normal capillary refill GI/Abdominal exam: PRESENT: normal bowel sounds, soft. ABSENT: distended, guarding, rebound, tenderness Extremities exam: ABSENT: clubbing, pedal edema Musculoskeletal exam: PRESENT: normal inspection. ABSENT: deformity Neurological exam: PRESENT: alert, awake, oriented to person, oriented to place, oriented to situation Psychiatric exam: PRESENT: appropriate affect, normal mood Skin exam: PRESENT: dry, warm Results Laboratory Results: 04/03/19 05:19 04/06/19 09:59 03/31/19 07:30 Troponin I 0.071 Impressions: Abdomen/Pelvis CT 03/31/19 07:56 IMPRESSION: 1. No acute intra-abdominal abnormality. 2. Moderate hiatal hernia. 3. Hepatic steatosis. 4. Age-indeterminate wedge compression deformity of the superior endplate of the T11 vertebral body without retropulsion and with less than 25% loss of the vertebral body height - if the patient is symptomatic correlation with bone scan or MRI could be obtained to evaluate the acuity of the fracture. 5. Extensive vascular calcifications suggestive of diabetes mellitus. Assessment and Plan - Diagnosis (1) Diabetic ketoacidosis Qualifiers: Diabetes mellitus type: type 1 Diabetes mellitus complication detail: without coma Qualified Code(s): E10.10 - Type 1 diabetes mellitus with ketoacidosis without coma Is this a current diagnosis for this admission?: Yes Plan: Now resolved. (2) Hypokalemia due to excessive gastrointestinal loss of potassium Is this a current diagnosis for this admission?: Yes Plan: Resolved (3) Nausea & vomiting Qualifiers: Vomiting type: unspecified Vomiting Intractability: intractable Qualified Code(s): R11.2 - Nausea with vomiting, unspecified Is this a current diagnosis for this admission?: Yes Plan: She had a small erosive esophagitis in the distal esophagus along with some diffuse mild gastritis. She is on Carafate and Protonix. I stressed to her the importance of being compliant with her medication regimen. As soon as she can keep some liquids down, we will going to discharge her home. - Time Time Spent with patient: 15-24 minutes
[2019-04-08] MEDS: ATORVASTATIN CALCIUM 40 MG TABLET PO SCH (21:33)
[2019-04-09] MEDS: INSULIN LISPRO 100 UNIT/ML 3 ML VIAL SUBCUT SCH ×3 (00:54→12:36)
[2019-04-09] MEDS: METOCLOPRAMIDE HCL INJ/PF 10 MG/2 ML SDV IV SCH ×3 (00:54→12:29)
[2019-04-09] MEDS: SUCRALFATE 1 GM TABLET PO SCH ×3 (00:56→12:36)
[2019-04-09] MEDS: LEVOTHYROXINE SODIUM 0.05 MG TABLET PO SCH (07:00)
[2019-04-09] MEDS: HEPARIN SOD (PORCINE) 5,000 UNIT/ML 1 ML VIAL SUBCUT SCH ×2 (07:00→13:27)
[2019-04-09] MEDS: BUPROPION HCL 100 MG TABLET PO SCH ×2 (07:07→13:27)
[2019-04-09] MEDS: POTASSI CL 20 MEQ/D5-1/2NS 1L 1000 ML IV PRN (07:08)
[2019-04-09] MEDS: POTASSIUM CHLORIDE 10 MEQ TABLET.ER PO SCH ×2 (09:43→12:28)
[2019-04-09] MEDS: SERTRALINE HCL 50 MG TABLET PO SCH (09:56)
[2019-04-09] MEDS: PANTOPRAZOLE SODIUM 40 MG VIAL IV SCH (09:56)
[2019-04-09] MEDS: INSULIN GLARGINE,HUM.REC.ANLOG 1,000 UNIT/10 ML VIAL SUBCUT SCH (09:56)
[2019-04-09] MEDS: LISINOPRIL 10 MG TABLET PO SCH (09:56)
[2019-04-09] MEDS: CARVEDILOL 6.25 MG TABLET PO SCH (09:57)
[2019-04-09] MEDS: ASPIRIN 325 MG TABLET, ENT COATED PO SCH (09:57)
[2019-04-09] MEDS: GABAPENTIN 300 MG CAPSULE PO SCH (09:57)
[2019-04-09 11:11] VITALS: BP 133/62
--- NOTE | 2019-04-09 17:09 | PDOC DISCHARGE SUMMARY ---
Impression - Admit/DC Date/PCP Admission Date/Primary Care Provider: 03/31/19 11:03 Discharge Date: 04/09/19 - Discharge Diagnosis (1) Diabetic ketoacidosis Is this a current diagnosis for this admission?: Yes (2) Hypokalemia due to excessive gastrointestinal loss of potassium Is this a current diagnosis for this admission?: Yes (3) Nausea & vomiting Is this a current diagnosis for this admission?: Yes (4) Erosive esophagitis Is this a current diagnosis for this admission?: Yes - Additional Information Resuscitation Status: Do Not Resuscitate Discharge Diet: Other (Comments) Discharge Activity: Activity As Tolerated Referrals: Follow up,[place] [Other] - 04/25/19 12:00 pm Prescriptions: Sucralfate [Carafate] 1 gm PO Q6 #1200 ml Insulin Lispro [Humalog Kwikpen U-100] 0 - 12 unit SQ AC #1 insuln.pen Insulin Glargine,Hum.rec.anlog [Lantus Insulin 100 Unit/mL Insulin Pen] 10 unit SUBCUT BID #1 pen Pantoprazole Sodium [Protonix [address] Tablet] 40 mg PO QAMPM #60 tablet. Ondansetron [Zofran Odt 4 mg Tablet] 4 mg PO Q4HP PRN #30 tab.rapdis PRN Reason: Home Medications: Aspirin [Aspirin 325 mg Tablet] 325 mg PO DAILY 03/31/19 Bupropion HCl [Wellbutrin Xl 150 mg 24hr Tablet] 150 mg PO Q12 03/31/19 Carvedilol [Coreg] 6.25 mg PO Q12 03/31/19 Gabapentin [Neurontin 300 mg Capsule] 300 mg PO Q12 03/31/19 Insulin Pump Cartridge [Omnipod] 1 each SQ .ASDIR 03/31/19 Levothyroxine Sodium [Synthroid 0.05 mg Tablet] 50 mcg PO Q6AM 03/31/19 Lisinopril [Prinivil 5 mg Tablet] 5 mg PO DAILY 03/31/19 Rosuvastatin Calcium [Crestor] 40 mg PO DAILY 03/31/19 Sertraline HCl [Zoloft] 200 mg PO DAILY 03/31/19 Insulin Glargine,Hum.rec.anlog [Lantus Insulin 100 Unit/mL Insulin Pen] 10 unit SUBCUT BID #1 pen 04/09/19 Insulin Lispro [Humalog Kwikpen U-100] 0 - 12 unit SQ AC #1 insuln.pen 04/09/19 Ondansetron [Zofran Odt 4 mg Tablet] 4 mg PO Q4HP PRN #30 tab.rapdis 04/09/19 Pantoprazole Sodium [Protonix [address] Tablet] 40 mg PO QAMPM #60 tablet.dr 04/09/19 Sucralfate [Carafate] 1 gm PO Q6 #1200 ml 04/09/19 History of Present Illiness History of Present Illness: GORDON WALTON is a 63 year old female type I diabetic on an insulin pump. She states that over the last several days she has been feeling more poorly. She believes it started on Friday. She also was running out of her glucose testing equipment. Her symptoms included nausea and vomiting. She had no diarrhea. She does not think she had a fever. She does state that she had a cough and at first thought it might of been the flu. Over the last several days she has had progressively decreasing appetite to the point where now she has recurrent nausea and vomiting. Her last episode of DKA was over 10 years ago. Her white blood cell count was elevated at 22,000. She had a decreased pH and decreased bicarb on her venous blood gas. Her glucose was elevated to 572 and s he had an anion gap. In addition, she had an elevated lipase. She was started on insulin infusion as well as aggressive IV fluids. She was seen by the dried fruit washer who felt there was no need for an ICU admission. She was referred to the hospital service for admission. Hospital Course Hospital Course: Her DKA responded quickly to insulin, IV fluids, and electrolyte management. She then developed a persistent nausea and said she vomited every time she tried to drink anything. This did not respond well to antiemetics. Her CT scan was unremarkable. She had good bowel sounds and a flat abdomen and a benign abdominal exam, so Dr. Faulkner was consulted. She had an EGD which showed some mild erosive esophagitis as well as some mild gastritis. Was recommended that she take a proton pump inhibitor along with Carafate. She initially did not want to take the Carafate, for reasons unknown, but was eventually convinced to take it, and she began to have an improvement in her symptoms. She was eating most if not all of her meals by the time she was discharged. She is heading back to [place] with her where they live full-time. She was given prescriptions for her medications that she would need. Her labs and examination were reassuring and she was discharged in stable condition. Physical Exam Vital Signs: Temp Pulse Resp BP Pulse Ox 98.4 F 71 16 133/62 H 97 04/09/19 11:10 04/09/19 11:10 04/09/19 11:10 04/09/19 11:10 04/09/19 11:10 Intake & Output 04/08/19 04/09/19 04/10/19 06:59 06:59 06:59 Intake Total 2120 1760 1463 Output Total 1875 500 Balance 245 1260 1463 Weight 71.7 kg 71.5 kg General appearance: PRESENT: no acute distress, cooperative, disheveled, obese Respiratory exam: PRESENT: clear to auscultation gregor, symmetrical, unlabored. ABSENT: accessory muscle use, chest wall tenderness, crackles, prolonged expiratory phas, rhonchi, tachypnea, wheezes Cardiovascular exam: PRESENT: RRR, +S1, +S2 Pulses: PRESENT: normal carotid pulses Vascular exam: PRESENT: normal capillary refill GI/Abdominal exam: PRESENT: normal bowel sounds, soft. ABSENT: distended, guarding, rebound, tenderness Extremities exam: ABSENT: clubbing, pedal edema Musculoskeletal exam: PRESENT: normal inspection. ABSENT: deformity Neurological exam: PRESENT: alert, awake, oriented to person, oriented to place, oriented to situation Psychiatric exam: PRESENT: appropriate affect, normal mood Skin exam: PRESENT: dry, warm Results Laboratory Results: WBC 7.8 10^3/uL (4.0-10.5) 04/03/19 05:19 RBC 4.18 10^6/uL (3.72-5.28) 04/03/19 05:19 Hgb 12.0 g/dL (12.0-15.5) 04/03/19 05:19 Hct 35.0 % (36.0-47.0) L 04/03/19 05:19 MCV 84 fl (80-97) 04/03/19 05:19 MCH 28.7 pg (27.0-33.4) 04/03/19 05:19 MCHC 34.3 g/dL (32.0-36.0) 04/03/19 05:19 RDW 15.7 % (11.5-14.0) H 04/03/19 05:19 Plt Count 224 10^3/uL (150-450) 04/03/19 05:19 Lymph % (Auto) 23.0 % (13-45) 04/03/19 05:19 [place] % (Auto) 11.5 % (3-13) 04/03/19 05:19 Eos % (Auto) 0.3 % (0-6) 04/03/19 05:19 Baso % (Auto) 0.6 % (0-2) 04/03/19 05:19 Absolute Neuts (auto) 5.1 10^3/uL (1.7-8.2) 04/03/19 05:19 Absolute Lymphs (auto) 1.8 10^3/uL (0.5-4.7) 04/03/19 05:19 Absolute Monos (auto) 0.9 10^3/uL (0.1-1.4) 04/03/19 05:19 Absolute Eos (auto) 0.0 10^3/uL (0.0-0.6) 04/03/19 05:19 Absolute Basos (auto) 0.0 10^3/uL (0.0-0.2) 04/03/19 05:19 Total Counted 100 03/31/19 07:30 Seg Neutrophils % 64.6 % (42-78) 04/03/19 05:19 Seg Neuts % (Manual) 87 % (42-78) H 03/31/19 07:30 Lymphocytes % (Manual) 9 % (13-45) L 03/31/19 07:30 Monocytes % (Manual) 4 % (3-13) 03/31/19 07:30 Eosinophils % (Manual) 0 % (0-6) 03/31/19 07:30 Basophils % (Manual) 0 % (0-2) 03/31/19 07:30 Abs Neuts (Manual) 19.1 10^3/uL (1.7-8.2) H 03/31/19 07:30 Abs Lymphs (Manual) 2.0 10^3/uL (0.5-4.7) 03/31/19 07:30 Abs Monocytes (Manual) 0.9 10^3/uL (0.1-1.4) 03/31/19 07:30 Absolute Eos (Manual) 0.0 10^3/uL (0.0-0.6) 03/31/19 07:30 Abs Basophils (Manual) 0.0 10^3/uL (0.0-0.2) 03/31/19 07:30 Clumped Platelets PRESENT 03/31/19 07:30 Platelet Comment ADEQUATE 03/31/19 07:30 Poikilocytosis SLIGHT 03/31/19 07:30 Anisocytosis SLIGHT 03/31/19 07:30 Ovalocytes SLIGHT 03/31/19 07:30 VBG pH 7.39 (7.30-7.42) 04/02/19 06:20 VBG pCO2 34.9 mmHg (35-63) L 04/02/19 06:20 VBG HCO3 20.6 mmol/L (20-32) 04/02/19 06:20 VBG Base Excess -3.7 mmol/L 04/02/19 06:20 Sodium 138.1 mmol/L (137-145) 04/06/19 09:59 Potassium 3.3 mmol/L (3.6-5.0) L 04/06/19 09:59 Chloride 101 mmol/L (98-107) 04/06/19 09:59 Carbon Dioxide 27 mmol/L (22-30) 04/06/19 09:59 Anion Gap 10 (5-19) 04/06/19 09:59 BUN 5 mg/dL (7-20) L 04/06/19 09:59 Creatinine 0.55 mg/dL (0.52-1.25) 04/06/19 09:59 Est GFR ( Amer) > 60 (>60) 04/06/19 09:59 Est GFR (MDRD) Non-Af > 60 (>60) 04/06/19 09:59 Glucose 163 mg/dL (75-110) H 04/06/19 09:59 POC Glucose 340 mg/dL (70-110) H 04/09/19 11:46 Calcium 8.5 mg/dL (8.4-10.2) 04/06/19 09:59 Magnesium 1.9 mg/dL (1.6-2.3) 04/04/19 05:51 Total Bilirubin 0.7 mg/dL (0.2-1.3) 04/04/19 05:51 Direct Bilirubin 0.2 mg/dL (0.0-0.4) 04/04/19 05:51 Neonat Total Bilirubin Not Reportable 04/04/19 05:51 Neonat Direct Bilirubin Not Reportable 04/04/19 05:51 Neonat Indirect Bili Not Reportable 04/04/19 05:51 AST 48 U/L (14-36) H 04/04/19 05:51 ALT 82 U/L (<35) 04/04/19 05:51 Alkaline Phosphatase 75 U/L (38-126) 04/04/19 05:51 Troponin I 0.071 ng/mL 03/31/19 07:30 Total Protein 5.6 g/dL (6.3-8.2) L 04/04/19 05:51 Albumin 2.9 g/dL (3.5-5.0) L 04/04/19 05:51 Lipase 97.5 U/L (23-300) 04/03/19 05:19 Urine Color YELLOW 03/31/19 08:42 Urine Appearance CLEAR 03/31/19 08:42 Urine pH 5.0 (5.0-9.0) 03/31/19 08:42 Ur Specific [place] 1.023 03/31/19 08:42 Urine Protein 30 mg/dL (NEGATIVE) H 03/31/19 08:42 Urine Glucose (UA) >=500 mg/dL (NEGATIVE) H 03/31/19 08:42 Urine Ketones 80 mg/dL (NEGATIVE) H 03/31/19 08:42 Urine Blood SMALL (NEGATIVE) H 03/31/19 08:42 Urine Nitrite (Reflex) NEGATIVE (NEGATIVE) 03/31/19 08:42 Urine Bilirubin NEGATIVE (NEGATIVE) 03/31/19 08:42 Urine Urobilinogen NEGATIVE mg/dL (<2.0) 03/31/19 08:42 Leukocyte Esterase Rfl NEGATIVE (NEGATIVE) 03/31/19 08:42 Urine RBC (Auto) 0 /HPF 03/31/19 08:42 U Hyaline Cast (Auto) 1 /LPF 03/31/19 08:42 Urine WBC (Reflex) 1 /HPF 03/31/19 08:42 Squamous Epi Cells Auto <1 /HPF 03/31/19 08:42 Urine Mucus (Auto) RARE /LPF 03/31/19 08:42 Urine Ascorbic Acid NEGATIVE (NEGATIVE) 03/31/19 08:42 03/31/19 07:30 Troponin I 0.071 Impressions: Abdomen/Pelvis CT 03/31/19 07:56 IMPRESSION: 1. No acute intra-abdominal abnormality. 2. Moderate hiatal hernia. 3. Hepatic steatosis. 4. Age-indeterminate wedge compression deformity of the superior endplate of the T11 vertebral body without retropulsion and with less than 25% loss of the vertebral body height - if the patient is symptomatic correlation with bone scan or MRI could be obtained to evaluate the acuity of the fracture. 5. Extensive vascular calcifications suggestive of diabetes mellitus. Plan Time Spent: Greater than 30 Minutes Stroke Is this a Stroke Patient?: No Acute Heart Failure - Is this a Heart Failure Patient?: No
== END 2019-04-09 14:00 | disposition home or self-care (01) | DRG 637 ==
LOC: ER 07:19 → EH 11:03 → 3S 13:04
PROVIDERS: ADMIT Hospitalist; ATTEND Hospitalist
PROC: 0DB78ZX Excision of Stomach, Pylorus, Via Natural or Artificial Opening Endoscopic, Diagnostic (ICD-10-PCS; principal; 2019-04-07 09:30)
DX: E10.10 Type 1 diabetes mellitus with ketoacidosis without coma (principal); K85.90 Acute pancreatitis without necrosis or infection, unspecified; K22.10 Ulcer of esophagus without bleeding; E87.6 Hypokalemia; K29.70 Gastritis, unspecified, without bleeding; E66.9 Obesity, unspecified; I25.10 Atherosclerotic heart disease of native coronary artery without angina pectoris; E10.42 Type 1 diabetes mellitus with diabetic polyneuropathy; E10.319 Type 1 diabetes mellitus with unspecified diabetic retinopathy without macular edema; Z66 Do not resuscitate; E78.5 Hyperlipidemia, unspecified; F32.9 Major depressive disorder, single episode, unspecified; K44.9 Diaphragmatic hernia without obstruction or gangrene; K31.7 Polyp of stomach and duodenum; R74.0 Nonspecific elevation of levels of transaminase and lactic acid dehydrogenase [LDH]; E10.610 Type 1 diabetes mellitus with diabetic neuropathic arthropathy; Z68.30 Body mass index [BMI] 30.0-30.9, adult; Z96.41 Presence of insulin pump (external) (internal); Z79.899 Other long term (current) drug therapy; Z79.4 Long term (current) use of insulin; Z79.82 Long term (current) use of aspirin; Z79.890 Hormone replacement therapy; Z95.5 Presence of coronary angioplasty implant and graft
CPT/HCPCS: 36415; 43239; 74176; 80048; 80053; 81001; 82803; 82962; 83690; 83735; 84484; 85025; 88305; 88341; 93005; 93010; 96361; 96374; 96375; 96376; 99285; C9113; J0171; J0360; J1200; J1610; J1644; J1815; J1940; J2060; J2250; J2310; J2405; J2550; J2765; J3010; J3480; J3490; J7030; J7042; J7050